=== PATIENT | female | born 1960 ===

== ENCOUNTER 2017-02-25 22:17 | Inpatient (IN) ==
[2017-02-25] MEDS ORDERED: FUROSEMIDE 40 MG/4 ML VIAL IV STA (22:53)
--- NOTE | 2017-02-25 23:11 | Emergency Department Note ---
IJessica Brittany, am scribing for, and in the presence of, Luz Marinelli DO 23: 04. IYves Debra, DO, personally performed the services described in this documentation, ascribed by Simran Lopez in my presence, and it is both accurate and complete 311 . Arrival - Arrival Chief Complaint: Shortness of Breath Stated Complaint: SOB ED Nursing Triage Note: Patient to triage with c/o SOB and chest tightness for the past couple of days which prompted her to go to the [facility] earlier this evening to be evaluated. Patient had labs, xray, and ekg at [facility] and was sent here for further evaluation and possible VC scan to R/O PE. Patient denies history of PE. Patient has history of CHF and xray report from [facility] reports "probable impending fluid overload" Patient arrives with records from [facility] in hand. EKG done in triage. Mode of Arrival: Ambulatory Limitations: No Limitations Source: Patient Time Seen by Provider: 02/25/17 22:40 - History of Present Illness HPI Narrative: This is a 57 y/o [place] female, who presents to the ED for further evaluation of dyspnea which started 2-3 days ago. She was seen at [facility] earlier this evening for the same complaint. She notes she has had lab work, x- rays, and an EKG while at [facility]. She was sent here for further evaluation and possible VC scan to rule out the possibility of PE. She denies chest pain. Pt has no other complaints/pain in the ED at this time. PT has a PMHx of CHF, HTN, Dyslipidemia, IDDM, renal problems, not yet on dialysis, asthma, back/neck problems, and enlarged uterus. Pt has had a colonoscopy. Pt denies a family hx. Onset (ago): day(s) (Started 2-3 days ago) Consistency: constant Severity: moderate Allergies/Adverse Reactions: Allergies Allergy/AdvReac Type Severity Reaction Status Date / Time No Known Allergies Allergy Verified 02/25/17 22:33 Home Medications: Home Medications Medication Instructions Recorded Confirmed Type Aspirin 325 mg PO DAILY 12/03/16 12/03/16 History Carvedilol 25 mg PO BID 12/03/16 12/03/16 History Chlorthalidone 25 mg PO DAILY 12/03/16 12/03/16 History Cholecalciferol (Vitamin D3) 50,000 units PO Q7DAY 12/03/16 12/03/16 History [Vitamin D3] Detemir 10 units SUBCUT AC BREAKFAST 12/03/16 12/03/16 History Detemir 60 units SUBCUT BEDTIME 12/03/16 12/03/16 History HYDROcodone/ACETAMIN 7.5-325 1 tablet PO Q6H #40 tablet 12/03/16 Rx [[place] 7.5-325] amLODIPine [Norvasc] 10 mg PO DAILY 12/03/16 12/03/16 History glyBURIDE [Diabeta] 10 mg PO BID W/MEALS 12/03/16 12/03/16 History Review of System - Review of System 12 point system: reviewed and no additional remarkable complaints except as stated - Review of System Cardiovascular: Present: dyspnea on exertion. Absent: chest pain Medical,Surgical,& Family Hx - Medical History Cardio: History of: CHF, Hypertension Neurology: No history of: Seizures HEENT: History of: Eye Problem (READING GLASSES) Endocrine: History of: Diabetes Mellitus (IDDM), Dyslipidemia Respiratory: History of: Asthma No history of: Respiratory Problems (FLU VAC- YES; PNEU VAC- YES.) Renal: History of: Renal Problems (PT STATES KIDNEY DISEASE, BUT NOT ON DIALYSIS ) Musculoskeletal: History of: Back/Neck Problems (BACK PAIN.) Reproductive: History of: Reproductive Problems (ENLARGED UTERUS.) - Surgical History Abdominal Surgeries: Surgical HX of: Colonoscopy - Social History Smoking Status: Unknown if ever smoked Frequency of Alcohol Use: None Type of Drug Use: None Exam Vital Signs: Vital Signs Temperature 98.2 F 02/25/17 22:23 Pulse Rate 70 02/25/17 23:28 Respiratory Rate 20 02/25/17 23:28 Blood Pressure 171/90 02/25/17 22:23 O2 Sat by Pulse Oximetry 95 02/25/17 22:23 - General General appearance: alert, in no apparent distress, obese (Morbid ) - Head Head exam: Present: atraumatic, normocephalic, normal inspection - Eye Eye exam: Present: normal appearance, PERRL, EOMI. Absent: nystagmus - Neck Neck exam: Present: full ROM - Chest Chest inspection: Present: symmetric chest wall rise - Respiratory Respiratory exam: Present: rales (Rales throught). Absent: normal lung sounds bilaterally, respiratory distress, rhonchi, wheezes - Cardiovascular Cardiovascular exam: Present: regular rate, normal rhythm, normal heart sounds. Absent: murmur, rubs, gallop, clicks, JVD - Rectal Exam Rectal exam: Present: deferred - Extremities Exam Extremities exam: Present: pedal edema (1+non pitting edema to the BLE) - Neurological Exam Neurological exam: Present: alert, oriented X3, CN II-XII intact. Absent: motor sensory deficit - Psychiatric Psychiatric exam: Present: normal affect, normal mood. Absent: depressed, agitated, anxious, flat affect - Skin Skin exam: Present: warm, dry, intact, normal color. Absent: rash, cyanosis, diaphoresis Course Course Narrative: Patient will be admitted to the hospitalist for possible VQ scan in the morning. Results - Labs Lab Results: I have reviewed the patients labs Labs: Laboratory Tests 02/25/17 02/25/17 22:50 22:50 Total Creatine Kinase 119 Troponin I < 0.015 B-Natriuretic Peptide 142 H Disposition Clinical Impression: Congestive heart failure, Elevated d-dimer Case discussed with: patient Disposition: Still a Patient Condition: Stable Time of Disposition: 01:04
[2017-02-25] MEDS ORDERED: FUROSEMIDE 40 MG/4 ML VIAL ONE (23:19)
[2017-02-25 23:53] LABS: Troponin I Only < 0.015 NG/ML (0.00-0.045)
[2017-02-26] MEDS ORDERED: INSULIN REGULAR 100 UNIT/ML SUBCUT ONE ×2 (01:55→03:00)
[2017-02-26] MEDS ORDERED: ONDANSETRON 4 MG/2 ML VIAL IV PRN (01:55)
[2017-02-26] MEDS ORDERED: ALBUTEROL/IPRATROPIUM 3 ML NEB RESP TX PRN (01:59)
--- NOTE | 2017-02-26 02:07 | Hospitalist History & Physical ---
Assessment and Plan (1) Chest pain Status: Acute Current Visit: Yes (2) Diabetes Status: Acute Current Visit: Yes Qualifiers: Diabetic retinopathy severity: with severe nonproliferative retinopathy (3) Elevated d-dimer Status: Acute Assessment and plan: Our plan for this patient 1. Admit patient to telemetry 2. Draw serial cardiac enzymes 3. Consult cardiology 4. Order VQ scan 5. Accu-Cheks before meals and at bedtime 6. Home meds as appropriate once confirmed 7. Fasting lipid profile 8. Reevaluate patient in the morning and adjust plans appropriate Current Visit: Yes History of Present Illness Chief complaint: Chest pain or shortness of breath History of present illness: Ms. Regalado is a 57 year old female with past medical history significant for morbid obesity, diabetes, hypertension, asthma and history of heart failure who presents to our hospital as a transfer from [facility]. Patient reports that she has been having chest discomfort and shortness of breath over the past 3 days. This started at work. 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 She thought it was her asthma she tried an inhaler within this tight sensation came back. It seem like it started in the lower part of her chest and radiated up it did not approach her shoulder or down her arm. At the same time she is feeling shortness of breath. She denies diaphoresis. She had a regular appointment for her diabetes today. When she brought up what was going on the clinic practitioner ordered a d-dimer which was elevated. She subsequently sent over to the [facility]. And then transferred to our hospital for this elevated d-dimer. Patient is not tachycardic and O2 saturations are 100% on 2 L. I was consulted to admit the patient through the emergency room. Home Medications Medication Instructions Recorded Confirmed Type Aspirin 325 mg PO DAILY 12/03/16 12/03/16 History Carvedilol 25 mg PO BID 12/03/16 12/03/16 History Chlorthalidone 25 mg PO DAILY 12/03/16 12/03/16 History Cholecalciferol (Vitamin D3) 50,000 units PO Q7DAY 12/03/16 12/03/16 History [Vitamin D3] Detemir 10 units SUBCUT AC BREAKFAST 12/03/16 12/03/16 History Detemir 60 units SUBCUT BEDTIME 12/03/16 12/03/16 History HYDROcodone/ACETAMIN 7.5-325 1 tablet PO Q6H #40 tablet 12/03/16 Rx [[place] 7.5-325] amLODIPine [Norvasc] 10 mg PO DAILY 12/03/16 12/03/16 History glyBURIDE [Diabeta] 10 mg PO BID W/MEALS 12/03/16 12/03/16 History Allergies Allergy/AdvReac Type Severity Reaction Status Date / Time No Known Allergies Allergy Verified 02/25/17 22:33 Medical,Surgical,& Family Hx - Medical History Cardio: History of: CHF, Hypertension Neurology: No history of: Seizures HEENT: History of: Eye Problem (READING GLASSES) Endocrine: History of: Diabetes Mellitus (IDDM), Dyslipidemia Respiratory: History of: Asthma No history of: Respiratory Problems (FLU VAC- YES; PNEU VAC- YES.) Renal: History of: Renal Problems (PT STATES KIDNEY DISEASE, BUT NOT ON DIALYSIS ) Musculoskeletal: History of: Back/Neck Problems (BACK PAIN.) Reproductive: History of: Reproductive Problems (ENLARGED UTERUS.) - Surgical History Abdominal Surgeries: Surgical HX of: Colonoscopy - Family History Family History: Reports;: Family Diabetes, Family Hypertension - Social History Smoking Status: Unknown if ever smoked Frequency of Alcohol Use: None Type of Drug Use: None 12 point system: reviewed and no additional remarkable complaints except as stated Exam - Constitutional Vitals: Period Temp Pulse Resp BP Sys/[place] Pulse Ox Last 24 Hr 98.2 F-98.2 F 70-72 20-22 170-171/90-90 95 - General General appearance: alert, in no apparent distress, obese - Head Head exam: Present: atraumatic, normocephalic, normal inspection - Eye Eye exam: Present: normal appearance, PERRL, EOMI. Absent: nystagmus - Neck Neck exam: Present: full ROM - Chest Chest inspection: Present: symmetric chest wall rise - Respiratory Respiratory exam: Present: Grossly clear but distant - Cardiovascular Cardiovascular exam: Present: regular rate, normal rhythm, normal heart sounds. - Rectal Exam Rectal exam: Present: deferred - Extremities Exam Extremities exam: Present: pedal edema (1+non pitting edema to the BLE) - Neurological Exam Neurological exam: Present: alert, oriented X3, CN II-XII intact. - Psychiatric Psychiatric exam: Present: normal affect, normal mood. Absent: depressed, agitated, anxious, flat affect - Skin Skin exam: Present: warm, dry, intact, normal color. Absent: rash, cyanosis, diaphoresis Results - Labs Labs: Labs from outside facility displayed glucose 264 BUN 38 creatinine 3.0 calcium 8.5 sodium 142 potassium 4 3.7 chloride 108 bicarb 23 total protein 9 albumin 3 total bili 0.2 alk phos 115 SGOT 15 SGPT 19 urinalysis negative nitrites negative leukocytes platelets 337 hemoglobin 11.4 hematocrit 36.3
[2017-02-26] MEDS: NITROGLYCERIN 2% OINT 1 INCH/GM PACK TOP SCH ×3 (05:29→18:14)
[2017-02-26 06:39] LABS: Calcium 8.4 MG/DL (8.5-10.1); Magnesium 1.8 MG/DL (1.8-2.4); Potassium 3.8 MMOL/L (3.5-5.1)
[2017-02-26 06:51] LABS: Risk Ratio 3.55
--- NOTE | 2017-02-26 08:15 | XRay Report ---
XR chest post lung scan Indication: Shortness of breath Comparison: 02 December 2016 Findings: The heart and mediastinum are normal in size and configuration. The pulmonary vascularity is normal in caliber. No lung infiltrates, effusions, pneumothorax or other abnormality is demonstrated. Impression: No acute cardiopulmonary disease. PROCEDURE INTERPRETED AT [facility] DEPARTMENT OF RADIOLOGY Final Report Signed by: Dr. Ulysses Mast
--- NOTE | 2017-02-26 08:16 | Nuclear Medicine Report ---
Nuclear medicine ventilation/perfusion scan Indication: Shortness of breath Findings: Ventilation scan: The patient received 40.0 mCi of 90 9M technetium DTPA aerosolized. There is normal distribution of radiotracer in both lungs. Perfusion scan: Patient received 5.0 mCi of 90 9M technetium MAA intravenously. There is normal in distribution of radiotracer in both lungs without evidence of segmental or greater defects. Impression: Normal nuclear medicine ventilation perfusion scan. This indicates low probability for pulmonary embolism. PROCEDURE INTERPRETED AT [facility] DEPARTMENT OF RADIOLOGY Final Report Signed by: Dr. Ulysses Mast
--- NOTE | 2017-02-26 08:34 | EKG Report ---
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
--- NOTE | 2017-02-26 08:36 | EKG Report ---
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
[2017-02-26] MEDS: INSULIN REGULAR 100 UNIT/ML SUBCUT SCH ×4 (08:46→21:51)
[2017-02-26] MEDS ORDERED: ASPIRIN EC 325 MG TABLET PO SCH (09:00)
[2017-02-26 09:40] LABS: Troponin I Only < 0.015 NG/ML (0.00-0.045)
--- NOTE | 2017-02-26 10:43 | Cardiology Consult Note ---
Assessment and Plan - Time spent with patient Time spent with patient: Greater than 30 minutes (1) Chest pain Status: Acute Assessment and plan: SEE PLAN OF CARE LISTED BELOW. Current Visit: Yes (2) Congestive heart failure Status: Chronic Assessment and plan: SEE PLAN OF CARE LISTED BELOW. Current Visit: Yes Qualifiers: Congestive heart failure type: unspecified congestive heart failure type Congestive heart failure chronicity: unspecified congestive heart failure chronicity Qualified Code(s): I50.9 - Heart failure, unspecified (3) Diabetes Status: Chronic Assessment and plan: SEE PLAN OF CARE LISTED BELOW. Current Visit: Yes Qualifiers: Diabetic retinopathy severity: with severe nonproliferative retinopathy (4) Elevated d-dimer Status: Acute Assessment and plan: SEE PLAN OF CARE LISTED BELOW. Current Visit: Yes (5) Shortness of breath Status: Acute Assessment and plan: SEE PLAN OF CARE LISTED BELOW. Current Visit: Yes (6) Chronic kidney disease Status: Chronic Assessment and plan: SEE PLAN OF CARE LISTED BELOW. Current Visit: Yes Qualifiers: Chronic kidney disease stage: stage 4 (severe) Qualified Code(s): N18.4 - Chronic kidney disease, stage 4 (severe) (7) Asthma Status: Chronic Assessment and plan: SEE PLAN OF CARE LISTED BELOW. Current Visit: Yes (8) Hypertension Status: Chronic Assessment and plan: SEE PLAN OF CARE LISTED BELOW. Current Visit: Yes (9) Dyslipidemia Status: Chronic Assessment and plan: SEE PLAN OF CARE LISTED BELOW. Current Visit: Yes History of Present Illness - Data of Consult Patient: new to practice Consult date: 02/26/17 Requesting Physician: Klaus Levy - Consult Narrative Reason for consult: Chest pain History of present illness: MAGNETO SPECIALIST: Dr. Wei Ms. Regalado is a 57 year old female without known history of coronary artery disease, not routinely followed by cardiology. Cardiac risk factors include: Hypertension, obesity, sedentary lifestyle, diabetes and former smoker (quit 9 years ago). Denies significant family history of CAD. She does report having a negative stress test performed in 2006. However, I cannot locate this record. Also reports having a clean heart catheterization in the distant past. No report noted in the EMR. Patient reports to [facility] with complaints of shortness of breath and chest pain 3 days. This onset while at work Thursday morning. She reports that she was sitting at her desk and suddenly developed dyspnea and chest tightness. She does have history of asthma. She used her inhaler which gave her relief. However, her symptoms did return later that day. She then experienced dyspnea and chest tightness constantly, waxing and waning in intensity. This worsened with exertion and talking. When she sat down and calmed herself her symptomology improved. Just simply having a conversation with family members would cause return of her symptoms. Chest tightness worse when taking a deep breath. Denies radiation and diaphoresis. Associated with mild nausea. Patient's is mildly continue to progress and she felt that she needed to be further evaluated in the emergency department. She was admitted under hospital medicine's service and housed the telemetry unit. Cardiology has been consulted to further evaluate. Patient was seen and examined on the telemetry unit. She is currently without complaints of dyspnea, heaviness or tightness. She continues to be short of breath. Active wheezing noted upon auscultation. Elevated d-dimer at outlying facility. VQ lung scan performed which was low probability of PE. I have added venous ultrasound to bilateral lower extremities to rule out DVT. Chest x -ray reviewed. No overt heart failure. Echocardiogram has been ordered. Chest pain is atypical in nature. Worse upon deep breath. EKG benign. Cardiac biomarkers negative. Unable to perform nuclear stress test today as patient previously underwent VQ lung scan this morning. She is also actively wheezing and her chest pain is felt to be most likely secondary to her underlying asthma. We will perform further cardiac workup once her lung disease has improved. This can be safely done as an outpatient. She will follow with Dr. Wei in 1 week for outpatient stress test. Continue aspirin. At home, patient takes carvedilol. I have changed this to Bystolic as she does have underlying lung disease and actively wheezing. Lipid-lowering agent initiated for further risk stratification. Unable to tolerate beta- blockade as her heart rate will not tolerate. IMPRESSION AND PLAN 1. CHEST PAIN - EKG benign. Cardiac biomarkers negative. Unable to perform nuclear stress test today as patient previously underwent VQ lung scan this morning. She is also actively wheezing and her chest pain is felt to be most likely secondary to her underlying asthma. We will perform further cardiac workup once her lung disease has improved. This can be safely done as an outpatient. She will follow with Dr. Wei in 1 week for outpatient stress test. Continue aspirin. Lipid-lowering agent initiated for further risk stratification. Unable to tolerate beta-blockade as her heart rate will not tolerate. 2. SHORTNESS OF BREATH - VQ lung scan was low probability for PE. Unable to perform CT angiogram due to elevated creatinine, 3.0. Suspect asthma exacerbation. Continue breathing treatments and supplemental oxygen. Echocardiogram has been ordered. These results will be reviewed and further recommendations will be made. 3. CHRONIC KIDNEY DISEASE - Avoiding nephrotoxic agents. We will not initiate BEENA or ARB for fear of worsening renal function. Daily BMP. 4. ELEVATED D-DIMER - VQ lung scan low probability of pulmonary embolism. Venous Dopplers of lower extremities ordered. 5. ASTHMA - Suspect exacerbation, active wheezing. Continue breathing treatments and supplemental oxygen. 6. DIABETES - Sliding scale insulin. Accu-Cheks before meals and at bedtime. 7. HYPERTENSION - Under well control this hospitalization. Avoiding BEENA inhibitor and ARB due to fear of worsening renal function. Will monitor blood pressure and make adjustments as needed this hospitalization. 8. HISTORY OF CONGESTIVE HEART FAILURE - Echocardiogram pending. No overt heart failure on chest x-ray. Received IV Lasix in the emergency department. Avoiding BEENA inhibitor and ARB due to fear of worsening renal function. Can consider hydralazine/Imdur if blood pressure will tolerate. At home, patient takes carvedilol. I have changed this to Bystolic as she does have underlying lung disease and actively wheezing. 9. DYSLIPIDEMIA - Lipid panel reviewed. Lipid lowering agent initiated. Lipid panel will need to be repeated in 4-6 weeks. CC: Vanessa Lemus MD - Home Medications and Allergies Home Medications: Home Medications Medication Instructions Recorded Confirmed Type Carvedilol 25 mg PO BID 12/03/16 02/26/17 History Chlorthalidone 25 mg PO DAILY 12/03/16 02/26/17 History Cholecalciferol (Vitamin D3) 50,000 units PO Q7DAY 12/03/16 02/26/17 History [Vitamin D3] Insulin Detemir [Levemir FlexPen] 10 units SUBCUT AC BREAKFAST 12/03/16 History Insulin Detemir [Levemir FlexPen] 60 units SUBCUT BEDTIME 12/03/16 02/26/17 History amLODIPine [Norvasc] 20 mg PO DAILY 12/03/16 02/26/17 History glyBURIDE [Diabeta] 10 mg PO BID W/MEALS 12/03/16 02/26/17 History Albuterol Inhaler [Proventil 2 puffs INH Q4HR PRN 02/26/17 02/26/17 History Inhaler] Aspirin EC Tab 81 mg PO DAILY 02/26/17 02/26/17 History Atorvastatin [Lipitor] 40 mg PO BEDTIME 02/26/17 02/26/17 History Lisinopril [Lisinopril] 40 mg PO DAILY 02/26/17 02/26/17 History Ranitidine Tab [Zantac Tab] 150 mg PO BID 02/26/17 02/26/17 History Allergies/Adverse Reactions: Allergies Allergy/AdvReac Type Severity Reaction Status Date / Time No Known Allergies Allergy Verified 02/25/17 22:33 - Constitutional Constitutional: Present: as per HPI, fatigue, weakness. Absent: chills, fever(s ), frequent falls, lethargy, malaise, weight gain, weight loss - Cardiovascular Cardiovascular: Present: as per HPI, chest pain at rest, chest pain with activity, dyspnea, dyspnea on exertion, edema, orthopnea. Absent: claudication , diaphoresis, radiating jaw, neck or arm pain, lightheadedness, palpitations, PND - Respiratory Respiratory: Present: as per HPI, dyspnea, dyspnea on exertion, wheezing, pain on inspiration. Absent: cough, hemoptysis, snoring, change in phlegm color - Gastrointestinal Gastrointestinal: Present: as per HPI. Absent: abdominal pain, change in bowel habits, coffee ground emesis, diarrhea, heartburn, hematemesis, hematochezia, loose stools, melena, nausea, vomiting - Neurological Neurological: Present: as per HPI. Absent: abnormal gait, abnormal speech, behavioral changes, dizziness, frequent falls, syncope - Psychiatric Psychiatric: Present: as per HPI. Absent: anxiety, confusion, panic attacks Medical,Surgical,& Family Hx - Medical History Cardio: History of: CHF, Hypertension Neurology: No history of: Seizures HEENT: History of: Eye Problem (READING GLASSES) Endocrine: History of: Diabetes Mellitus (IDDM), Dyslipidemia Respiratory: History of: Asthma No history of: Respiratory Problems (FLU VAC- YES; PNEU VAC- YES.) Renal: History of: Renal Problems (PT STATES KIDNEY DISEASE, BUT NOT ON DIALYSIS ) Musculoskeletal: History of: Back/Neck Problems (BACK PAIN.) Reproductive: History of: Reproductive Problems (ENLARGED UTERUS.) - Surgical History Abdominal Surgeries: Surgical HX of: Colonoscopy - Family History Family History: Reports;: Family Diabetes, Family Hypertension - Social History Smoking Status: Former smoker Frequency of Alcohol Use: None Type of Drug Use: None Marital Status: Single Lives With:: Alone Functional capacity: independent ambulation Physical Examination Vital Signs Temp Pulse Resp BP Pulse Ox 98.2 F 72 22 170/90 95 02/25/17 22:23 02/25/17 22:23 02/25/17 22:23 02/25/17 22:23 02/25/17 22:23 Exam: General: Appears well with no apparent distress. Pleasant and cooperative. Appears comfortable. HEENT: PERRL, normocephalic, atraumatic. Mucous membranes moist. No jaundice noted. Conjunctiva moist and clear, sclerae anicteric Neck: Unable to assess for JVD due to habitus. no thyromegaly or lymphadenopathy noted. No carotid bruit appreciated Cardiac: Regular rate and rhythm. No murmur rub or gallop. Lungs: Wheezing auscultated throughout. Oxygen via nasal cannula Abdomen: Obese. Soft, bowel sounds normoactive. Nontender and nondistended. No abdominal bruit or thrill noted. No masses noted. Extremities: No clubbing, cyanosis noted. 1+ bilateral lower extremity edema. Upper extremity pulses 2+. Lower extremity pulses 2+. Capillary refill less than 3 seconds. Skin: No unusual lesions or rashes. No skin breakdown appreciated. Neuro: Awake, alert and oriented 3. Moves all extremities well without hemiparesis or paralysis. No essential tremor is appreciated. Result/EKG - Labs CBC & BMP: 02/26/17 04:23 Lab Results: I have reviewed the past 24 hour labs Labs: Laboratory Results - last 24 hr 02/25/17 02/25/17 02/26/17 22:50 22:50 04:23 Sodium Potassium Chloride Carbon Dioxide Anion Gap BUN Creatinine GFR Calculation BUN/Creatinine Ratio Glucose POC Glucose Calculated Osmolality Calcium Magnesium Total Creatine Kinase 119 CK-MB (CK-2) Troponin I < 0.015 B-Natriuretic Peptide 142 H Triglycerides 160 H Cholesterol 149 LDL Cholesterol 87.0 VLDL Cholesterol 32.0 HDL Cholesterol 42 Heart Disease Risk Ratio 3.55 09/14/17 09/14/17 09/14/17 04:23 04:23 08:39 Sodium 143 Potassium 3.8 Chloride 110 H Carbon Dioxide 24 Anion Gap 12.8 BUN 38 H Creatinine 3.00 H GFR Calculation 22 BUN/Creatinine Ratio 12.00 Glucose 167 H POC Glucose Calculated Osmolality 297.0 Calcium 8.4 L Magnesium 1.8 Total Creatine Kinase 96 CK-MB (CK-2) 1.2 Troponin I < 0.015 < 0.015 B-Natriuretic Peptide Triglycerides Cholesterol LDL Cholesterol VLDL Cholesterol HDL Cholesterol Heart Disease Risk Ratio 02/26/17 08:42 Sodium Potassium Chloride Carbon Dioxide Anion Gap BUN Creatinine GFR Calculation BUN/Creatinine Ratio Glucose POC Glucose 134 H Calculated Osmolality Calcium Magnesium Total Creatine Kinase CK-MB (CK-2) Troponin I B-Natriuretic Peptide Triglycerides Cholesterol LDL Cholesterol VLDL Cholesterol HDL Cholesterol Heart Disease Risk Ratio - EKG EKG results: interpreted by me, sinus rhythm (Moderate intraventricular conduction delay.)
[2017-02-26] MEDS: ENOXAPARIN 30 MG/0.3 ML SYRINGE SUBCUT SCH (11:18)
[2017-02-26 12:38] LABS: Basophils % 0.3 % (0.0-0.8); Eosinophils # 0.4 10*3/uL (0.0-0.87); Eosinophils % 4.1 % (0.00-10.9); Hematocrit 32.2 VOL% (35.7-47.0); Hemoglobin 10.7 GM/DL (12.0-16.0); Immature Granulocytes % 0.3 %; Immature Granulocytes Absolute 0.03 #; Lymphocytes # 2.4 10*3/uL (1.4-4.0); Lymphocytes % 25.4 % (21.3-54.2); Mean Corpuscular HGB Conc 33.2 GM/DL (32-36); Mean Corpuscular Hemoglobin 29 PG (27-34); Mean Corpuscular Volume 85.6 FL (87-102); Mean Platelet Volume 9.3 FL (9.6-12.0); Monocytes # 0.7 10*3/uL (0.11-0.8); Monocytes % 7.2 % (1.7-12.7); Neutrophils % 62.7 % (38.7-73.9); Platelet Count 311 T/CUMM (130-400); Red Blood Count 3.76 MC/CUMM (3.8-5.5); Red Cell Distribution Width 13.2 % (9.3-17.3); White Blood Count 9.5 T/CUMM (4-12)
[2017-02-26] MEDS ORDERED: ALBUTEROL 2.5 MG/3 ML NEB RESP TX PRN (13:00)
[2017-02-26 13:15] LABS: Troponin I Only < 0.015 NG/ML (0.00-0.045)
[2017-02-26] MEDS: ALBUTEROL/IPRATROPIUM 3 ML NEB RESP TX SCH ×2 (13:49→20:21)
--- NOTE | 2017-02-26 14:49 | Ultrasound Report ---
History: Lower extremity edema Date: 02/26/2017 Study: Bilateral lower extremity color-flow venous Doppler study Comparison exam: No previous similar Color Doppler, wave form analysis, and compression analysis of the deep veins of both lower extremities from the common femoral vein level through the popliteal vein level shows that the veins are readily compressible. There is no abnormal intraluminal material to suggest thrombus. Waveform analysis is unremarkable. Ultrasound images were captured and archived Impression: No evidence of acute DVT PROCEDURE INTERPRETED AT [facility] Final Report Signed by: Dr. Kianna Vieyra
[2017-02-26 16:07] LABS: Troponin I Only < 0.015 NG/ML (0.00-0.045)
--- NOTE | 2017-02-26 16:08 | ECHO Report ---
Caitlin Regalado Exam Date: 02/26/2017 13:34 Referring Physician: Technologist: Marii Cardozo RDCS Age: 57 Ht (in): 63 Wt (lb): 312 Gender: F Exam Location: [facility] Indications: Chest pain, unspecified, Essential (primary) hypertension, Chronic kidney disease, unspecified, Heart failure, unspecified, Elevated D-Dimer, Shortness of breath, Asthma, Diabetes BP: 137 / 72 HR: 70 Rhythm: Sinus Technical Quality: IMPRESSIONS Normal left ventricular cavity size. Mild concentric left ventricular hypertrophy. Left ventricular ejection fraction is estimated at 60 %. Grade 2 diastolic dysfunction. Moderate biatrial enlargement. Mildly thickened mitral valve, with mild annular calcification, mild to moderate mitral valve regurgitation. Mild aortic valve sclerosis without stenosis, with trace insufficiency. Moderate tricuspid valve regurgitation, with moderate pulmonary hypertension. MEASUREMENTS (Male / Female) Normal Values 2D ECHO LV Diastolic Diameter PLAX 4.4 cm 4.2 - 5.9 / 3.9 - 5.3 cm LV Systolic Diameter PLAX 3.1 cm LV Fractional Shortening PLAX 29.5 % IVS Diastolic Thickness 1.4 cm 0.6 - 1.0 / 0.6 - 0.9 cm LVPW Diastolic Thickness 1.4 cm 0.6 - 1.0 / 0.6 - 0.9 cm RV Internal Dim ED PLAX 3.4 cm Aortic Root Diameter 3.4 cm LA Systolic Diameter LX 4.2 cm 3.0 - 4.0 / 2.7 - 3.8 cm DOPPLER TR Peak Velocity 318.0 cm/s TR Peak Gradient 40.4 mmHg FINDINGS Left Ventricle Normal left ventricular cavity size. Mild concentric left ventricular hypertrophy. Left ventricular ejection fraction is estimated at 60 %. Grade 2 diastolic dysfunction. Right Ventricle The right ventricle is normal in size and function. Right Atrium Moderately increased right atrial size. Left Atrium Moderately increased left atrial size. Mitral Valve Mildly thickened mitral valve. Mild mitral annular calcification. Mild- moderate mitral valve regurgitation. Aortic Valve Mild aortic valve sclerosis without stenosis, with trace insufficiency. Tricuspid Valve Morphologically normal tricuspid valve. Moderate tricuspid valve regurgitation. Tricuspid regurgitation velocities suggest a PAP of 50 mmHg. Pulmonic Valve Morphologically normal pulmonic valve. Trace pulmonary valve regurgitation. Pericardium Normal pericardium without effusion. Aorta Normal ascending aorta dimension. Frederick Marrero (Electronically Signed) Final Date: 26 February 2017 16:07
[2017-02-26] MEDS: predniSONE 20 MG TABLET PO SCH ×2 (16:39→21:49)
[2017-02-26] MEDS: FUROSEMIDE 40 MG/4 ML VIAL IV SCH (16:40)
[2017-02-26] MEDS ORDERED: CARVEDILOL 25 MG TABLET PO SCH (21:00)
[2017-02-26] MEDS: ROSUVASTATIN 20 MG TABLET PO SCH (21:51)
[2017-02-27] MEDS: NITROGLYCERIN 2% OINT 1 INCH/GM PACK TOP SCH ×4 (00:08→18:14)
[2017-02-27] MEDS: ALBUTEROL/IPRATROPIUM 3 ML NEB RESP TX SCH ×7 (00:15→23:50)
[2017-02-27 04:19] LABS: Basophils % 0.1 % (0.0-0.8); Hematocrit 31.6 VOL% (35.7-47.0); Hemoglobin 10.3 GM/DL (12.0-16.0); Immature Granulocytes % 0.8 %; Immature Granulocytes Absolute 0.07 #; Lymphocytes # 0.8 10*3/uL (1.4-4.0); Lymphocytes % 9.1 % (21.3-54.2); Mean Corpuscular HGB Conc 32.6 GM/DL (32-36); Mean Corpuscular Hemoglobin 28 PG (27-34); Mean Corpuscular Volume 85.9 FL (87-102); Mean Platelet Volume 9.5 FL (9.6-12.0); Monocytes # 0.1 10*3/uL (0.11-0.8); Monocytes % 0.8 % (1.7-12.7); Neutrophils # 8.2 10*3/uL (1.4-7.4); Neutrophils % 89.2 % (38.7-73.9); Platelet Count 314 T/CUMM (130-400); Red Blood Count 3.68 MC/CUMM (3.8-5.5); Red Cell Distribution Width 13.1 % (9.3-17.3); White Blood Count 9.2 T/CUMM (4-12)
[2017-02-27 04:51] LABS: Calcium 8.2 MG/DL (8.5-10.1); Magnesium 1.6 MG/DL (1.8-2.4); Osmolality,Calculated 301.4 MOS/KG (273-304); Potassium 4.3 MMOL/L (3.5-5.1)
[2017-02-27] MEDS ORDERED: ASPIRIN EC 81 MG TABLET PO SCH (09:00)
--- NOTE | 2017-02-27 09:17 | EKG Report ---
Stationary ECG Study [facility] Test Date: 02/27/2017 7:48:11 AM Pat Name: MINAL MENCHACA Department: Room: 266 Gender: F Credit Balance Specialist: JEANMARIE : 1960 Requested by: Jaclyn Hamilton Order Number: [id number] Reading MD: JIA PARHAM Intervals [place] Rate: 65 P: 63 HI: 198 QRS: -22 QRSD: 123 T: 90 QT: 449 QTc: 461 Interpretive Statements SINUS RHYTHM BORDERLINE LEFT AXIS DEVIATION MODERATE INTRAVENTRICULAR CONDUCTION DELAY Electronically Signed On 02-27-17 17:07:42 CDT by JIA PARHAM [email or web address]
[2017-02-27] MEDS: ASPIRIN EC 81 MG TABLET PO SCH (09:18)
[2017-02-27] MEDS: predniSONE 20 MG TABLET PO SCH ×2 (09:18→21:40)
[2017-02-27] MEDS: NEBIVOLOL 5 MG TABLET PO SCH (09:19)
[2017-02-27] MEDS: INSULIN REGULAR 100 UNIT/ML SUBCUT SCH ×4 (09:19→21:40)
[2017-02-27] MEDS: ENOXAPARIN 30 MG/0.3 ML SYRINGE SUBCUT SCH (09:19)
[2017-02-27] MEDS: FUROSEMIDE 40 MG/4 ML VIAL IV SCH ×2 (09:19→16:21)
[2017-02-27] MEDS ORDERED: MAGNESIUM SULF RIDER 2 GM in PREMIX 1 EACH IV PRN (11:55)
[2017-02-27] MEDS ORDERED: MAGNESIUM SULF RIDER 4 GM in PREMIX 1 EACH IV PRN (11:55)
--- NOTE | 2017-02-27 11:56 | Cardiology Progress Note ---
Assessment and Plan (1) Chest pain Status: Acute Assessment and plan: SEE PLAN OF CARE LISTED BELOW. Current Visit: Yes (2) Congestive heart failure Status: Chronic Assessment and plan: SEE PLAN OF CARE LISTED BELOW. Current Visit: Yes Qualifiers: Congestive heart failure type: unspecified congestive heart failure type Congestive heart failure chronicity: unspecified congestive heart failure chronicity Qualified Code(s): I50.9 - Heart failure, unspecified (3) Diabetes Status: Chronic Assessment and plan: SEE PLAN OF CARE LISTED BELOW. Current Visit: Yes Qualifiers: Diabetic retinopathy severity: with severe nonproliferative retinopathy (4) Elevated d-dimer Status: Acute Assessment and plan: SEE PLAN OF CARE LISTED BELOW. Current Visit: Yes (5) Shortness of breath Status: Acute Assessment and plan: SEE PLAN OF CARE LISTED BELOW. Current Visit: Yes (6) Chronic kidney disease Status: Chronic Assessment and plan: SEE PLAN OF CARE LISTED BELOW. Current Visit: Yes Qualifiers: Chronic kidney disease stage: stage 4 (severe) Qualified Code(s): N18.4 - Chronic kidney disease, stage 4 (severe) (7) Asthma Status: Chronic Assessment and plan: SEE PLAN OF CARE LISTED BELOW. Current Visit: Yes (8) Hypertension Status: Chronic Assessment and plan: SEE PLAN OF CARE LISTED BELOW. Current Visit: Yes (9) Dyslipidemia Status: Chronic Assessment and plan: SEE PLAN OF CARE LISTED BELOW. Current Visit: Yes (10) Hypomagnesemia Status: Acute Assessment and plan: SEE PLAN OF CARE LISTED BELOW. Current Visit: Yes Cardiology - PN: Subj Interval history: COIL WRAPPER: Dr. Wei SUMMARY Ms. Regalado is a 57 year old female without known history of coronary artery disease, not routinely followed by cardiology. She has an appointment to see Dr. Wei for her first cardiology evaluation. Cardiac risk factors include : Hypertension, obesity, sedentary lifestyle, diabetes and former smoker (quit 9 years ago). Denies significant family history of CAD. She does report having a negative stress test performed in 2006. However, I cannot locate this record. Also reports having a clean heart catheterization in the distant past. No report noted in the EMR. She was admitted with shortness of breath, echo suggests diastolic CHF exacerbation, moderate pulmonary hypertension, moderate MR. No ACS. No DVT or PE on ultrasound and VQ scan. Severe CKD. 2016 Patient seen and examined on the telemetry unit. She has done well overnight without complaints. Reports that her breathing has improved. Without chest pain, heaviness or tightness today. She ruled out for NM. No ACS. Her complaints of chest pain seemed to have an asthma component. We will plan to further risk stratify patient with outpatient cardiac stress test in 1 week when her asthma is compensated. Avoid nonselective beta-blockers. Continue aspirin, Bystolic and statin. Avoiding BEENA inhibitor and ARB due to fear of worsening renal function. Hemodynamically stable. Eyes and eyes have been reviewed. She has diuresed well with IV Lasix. This will be transitioned to p.o. as she was without orthopnea last night. Labs reviewed. Creatinine unchanged at 3.0. Daily BMP. Hypomagnesemia noted. Replace per protocol order. No further recommendations. I will further discuss with Dr. Marrero and await his additional recommendations. IMPRESSION AND PLAN 1. CHEST PAIN - Ruled out for NM. No ACS. Seems to have an asthma component. Avoid nonselective beta-blockers. Continue aspirin, Bystolic and statin. We will plan to further risk stratify patient with outpatient cardiac stress test in 1 week when her asthma is compensated. Patient is agreeable to this plan. She will follow with Dr. Wei in 1 week for outpatient stress test. 2. SHORTNESS OF BREATH - Improved.. Suspect this is multifactorial to include both asthma exacerbation and acute exacerbation of diastolic congestive heart failure. Patient diuresed well with IV Lasix. I will transition her to p.o. today. No orthopnea overnight. 3. CHRONIC KIDNEY DISEASE - Avoiding nephrotoxic agents. We will not initiate BEENA or ARB for fear of worsening renal function. Patient's Lovenox is renally dosed as she has chronic kidney disease, stage IV. Creatinine this hospitalization 3.0. This will be continued for DVT prophylaxis. Daily BMP. 4. ELEVATED D-DIMER - No DVT or PE on ultrasound and VQ scan. 5. ASTHMA - Improved. No wheezing on exam. Continue breathing treatments, steroids and supplemental oxygen. 6. DIABETES - Sliding scale insulin. Accu-Cheks before meals and at bedtime. 7. HYPERTENSION - Under well control this hospitalization. Continue current plan of care. 8. ACUTE DIASTOLIC CHF EXACERBATION - Patient diuresed well with IV Lasix. No orthopnea overnight. I will transition patient to p.o. Lasix today. Avoiding BEENA inhibitor and ARB due to fear of worsening renal function. Continue beta-shawna. 9. DYSLIPIDEMIA - LDL 87. Continue lipid-lowering agent. Lipid panel will need to be repeated in 4-6 weeks. 10. HYPOMAGNESEMIA - Replace per protocol. Exam (Progress Note) - Constitutional Vitals: Period Temp Pulse Resp BP Sys/Arroyo Pulse Ox Last 24 Hr 96.0 F-98.0 F 65-82 14-22 127-161/68-83 92-100 Exam: General: Appears well with no apparent distress. Pleasant and cooperative. Appears comfortable. HEENT: PERRL, normocephalic, atraumatic. Mucous membranes moist. No jaundice noted. Conjunctiva moist and clear, sclerae anicteric Neck: Unable to assess for JVD due to habitus. no thyromegaly or lymphadenopathy noted. No carotid bruit appreciated Cardiac: Regular rate and rhythm. No murmur rub or gallop. Lungs: Clear to auscultation. Oxygen via nasal cannula Abdomen: Obese. Soft, bowel sounds normoactive. Nontender and nondistended. No abdominal bruit or thrill noted. No masses noted. Extremities: No clubbing, cyanosis noted. Trace lower extremity edema. Upper extremity pulses 2+. Lower extremity pulses 2+. Capillary refill less than 3 seconds. Skin: No unusual lesions or rashes. No skin breakdown appreciated. Neuro: Awake, alert and oriented 3. Moves all extremities well without hemiparesis or paralysis. No essential tremor is appreciated. Result/EKG - Labs CBC & BMP: 02/27/17 04:07 02/27/17 04:07 Lab Results: I have reviewed the past 24 hour labs Labs: Laboratory Results - last 24 hr 02/26/17 02/26/17 02/26/17 11:47 12:29 12:29 WBC 9.5 RBC 3.76 L Hgb 10.7 L Hct 32.2 L MCV 85.6 L MCH 29 MCHC 33.2 RDW 13.2 Plt Count 311 MPV 9.3 L Neut % (Auto) 62.7 Lymph % (Auto) 25.4 Dare % (Auto) 7.2 Eos % (Auto) 4.1 Baso % (Auto) 0.3 Neut # (Auto) 6.0 Lymph # (Auto) 2.4 Dare # (Auto) 0.7 Eos # (Auto) 0.4 Baso # (Auto) 0.0 Immature Gran % 0.3 Nucleated RBC % 0.0 Immature Gran # 0.03 Nucleated RBCs # 0.00 Immature Plt Fraction 0.0 Sodium Potassium Chloride Carbon Dioxide Anion Gap BUN Creatinine GFR Calculation BUN/Creatinine Ratio Glucose POC Glucose 126 H Calculated Osmolality Calcium Magnesium Total Creatine Kinase 95 CK-MB (CK-2) 1.2 Troponin I < 0.015 02/26/17 02/26/17 02/26/17 14:58 15:30 19:15 WBC RBC Hgb Hct MCV MCH MCHC RDW Plt Count MPV Neut % (Auto) Lymph % (Auto) [place] % (Auto) Eos % (Auto) Baso % (Auto) Neut # (Auto) Lymph # (Auto) [place] # (Auto) Eos # (Auto) Baso # (Auto) Immature Gran % Nucleated RBC % Immature Gran # Nucleated RBCs # Immature Plt Fraction Sodium Potassium Chloride Carbon Dioxide Anion Gap BUN Creatinine GFR Calculation BUN/Creatinine Ratio Glucose POC Glucose 179 H 285 H Calculated Osmolality Calcium Magnesium Total Creatine Kinase 107 CK-MB (CK-2) 1.4 Troponin I < 0.015 02/27/17 02/27/17 02/27/17 04:07 04:07 07:58 WBC 9.2 RBC 3.68 L Hgb 10.3 L Hct 31.6 L MCV 85.9 L MCH 28 MCHC 32.6 RDW 13.1 Plt Count 314 MPV 9.5 L Neut % (Auto) 89.2 H Lymph % (Auto) 9.1 L [place] % (Auto) 0.8 L Eos % (Auto) 0.0 Baso % (Auto) 0.1 Neut # (Auto) 8.2 H Lymph # (Auto) 0.8 L [place] # (Auto) 0.1 L Eos # (Auto) 0.0 Baso # (Auto) 0.0 Immature Gran % 0.8 Nucleated RBC % 0.0 Immature Gran # 0.07 Nucleated RBCs # 0.00 Immature Plt Fraction 0.0 Sodium 140 Potassium 4.3 Chloride 108 H Carbon Dioxide 24 Anion Gap 12.3 BUN 37 H Creatinine 3.00 H GFR Calculation 22 BUN/Creatinine Ratio 12.00 Glucose 342 H POC Glucose 377 H Calculated Osmolality 301.4 Calcium 8.2 L Magnesium 1.6 L Total Creatine Kinase CK-MB (CK-2) Troponin I Specialty Discharge - Follow Up or Referrals Follow up with: Yue Wei MD [Physician] - 03/24/17 9:40 am (Patient will need appointment with [facility] within 1 week of discharge for outpatient cardiac stress test. She will then follow with Dr. Yue Wei 1 week following stress test. Stress test is on 03/05/17 at 7:45 at [facility] NPO after MN before test and NO CAFFIENE for 24 HOURS before test. )
--- NOTE | 2017-02-27 14:41 | Event Note ---
Interviewed and examined the patient personally. Discussed findings with the nurse practitioner. I agree with the assessment and plan, with additions as below. See UTILIZATION ENGINEER note separately. 57-year-old female, who was trying to see Dr. Wei for a first cardiology evaluation. She was admitted with shortness of breath, echo suggests diastolic CHF exacerbation, moderate pulmonary hypertension, moderate MR. No ACS -Continue aspirin, statin. -Cont Bystolic, aim for resting heart rate around 60 bpm, systolic blood pressure less than 130 -Lasix 80 mg IV twice daily. She is still quite orthopneic. -No DVT or PE on ultrasound and VQ scan -Severe CKD. -Seems to have an asthma component. Still with bronchospasm. Avoid nonselective beta-blockers -No ACS. -Will need follow-up with Dr. Wei.
--- NOTE | 2017-02-27 15:19 | Hospitalist Progress Note ---
Assessment and Plan (1) Congestive heart failure Status: Chronic Assessment and plan: Diastolic heart failure Cardiology assisting Lasix 80 IV BID Current Visit: Yes Qualifiers: Congestive heart failure type: unspecified congestive heart failure type Congestive heart failure chronicity: unspecified congestive heart failure chronicity Qualified Code(s): I50.9 - Heart failure, unspecified (2) Diabetes Status: Chronic Assessment and plan: SSI FSG elevated Start lantus 15 units daily Current Visit: Yes Qualifiers: Diabetic retinopathy severity: with severe nonproliferative retinopathy (3) Shortness of breath Status: Acute Current Visit: Yes (4) Chronic kidney disease Status: Chronic Assessment and plan: Patient was suppose to follow with Dr. Whittaker but missed her appointment Stable Current Visit: Yes Qualifiers: Chronic kidney disease stage: stage 4 (severe) Qualified Code(s): N18.4 - Chronic kidney disease, stage 4 (severe) (5) Asthma Status: Chronic Assessment and plan: Duonebs, prednisone Current Visit: Yes (6) Hypertension Status: Chronic Current Visit: Yes (7) WENDY (obstructive sleep apnea) Status: Acute Assessment and plan: Consult Dr. Cervantes Current Visit: Yes Hospitalist: Subjective Interval history: No acute events overnight. Patient still with significant sob, even with talking. She reports a history of WENDY for 5-6 years, she has a cpap at home but says that she only uses it sometimes. Exam - Constitutional Vitals: Period Temp Pulse Resp BP Sys/Arroyo Pulse Ox Last 24 Hr 96.0 F-98.0 F 65-82 14-22 127-161/68-83 92-100 General appearance: over weight - Head Head exam: Present: normocephalic, atraumatic - Eye Eye exam: Present: EOMI Pupils: Present: KENZIE - ENT ENT exam: Present: normal exam - Neck Neck exam: Present: normal inspection - Respiratory Respiratory exam: Present: wheezes - Cardiovascular Cardiovascular exam: Present: regular rate and rhythm - GI/Abdominal GI/Abdominal exam: Present: normal bowel sounds, soft. Absent: tenderness, rebound - Extremities Exam Extremities exam: Present: normal inspection - Back Exam Back exam: Present: normal inspection - Neurological Exam Neurological exam: Present: alert, oriented X3 - Psychiatric Psychiatric exam: Present: normal affect, normal mood - Skin Skin exam: Present: warm, intact Results - Labs CBC & BMP: 02/27/17 04:07 02/27/17 04:07 Specialty Discharge - Follow Up or Referrals Follow up with: Yue Wei MD [Physician] - 03/24/17 9:40 am (Patient will need appointment with [facility] within 1 week of discharge for outpatient cardiac stress test. She will then follow with Dr. Yue Wei 1 week following stress test. Stress test is on 03/05/17 at 7:45 at [facility] NPO after MN before test and NO CAFFIENE for 24 HOURS before test. )
[2017-02-27] MEDS ORDERED: FUROSEMIDE 40 MG TABLET PO SCH (16:00)
[2017-02-27] MEDS: INSULIN GLARGINE 100 UNIT/ML SUBCUT SCH (21:40)
[2017-02-27] MEDS: ROSUVASTATIN 20 MG TABLET PO SCH (21:40)
[2017-02-28] MEDS: NITROGLYCERIN 2% OINT 1 INCH/GM PACK TOP SCH ×4 (01:40→17:37)
[2017-02-28] MEDS: ALBUTEROL/IPRATROPIUM 3 ML NEB RESP TX SCH ×6 (04:05→23:52)
[2017-02-28 04:55] LABS: Basophils % 0.1 % (0.0-0.8); Hematocrit 32.6 VOL% (35.7-47.0); Hemoglobin 10.9 GM/DL (12.0-16.0); Immature Granulocytes % 1.4 %; Immature Granulocytes Absolute 0.21 #; Lymphocytes # 0.9 10*3/uL (1.4-4.0); Lymphocytes % 6.1 % (21.3-54.2); Mean Corpuscular HGB Conc 33.4 GM/DL (32-36); Mean Corpuscular Hemoglobin 28 PG (27-34); Mean Corpuscular Volume 84.2 FL (87-102); Mean Platelet Volume 9.9 FL (9.6-12.0); Monocytes # 0.4 10*3/uL (0.11-0.8); Monocytes % 2.4 % (1.7-12.7); Neutrophils # 13.2 10*3/uL (1.4-7.4); Platelet Count 332 T/CUMM (130-400); Red Blood Count 3.87 MC/CUMM (3.8-5.5); White Blood Count 14.7 T/CUMM (4-12)
[2017-02-28 05:23] LABS: Calcium 8.4 MG/DL (8.5-10.1); Magnesium 1.7 MG/DL (1.8-2.4); Osmolality,Calculated 298.8 MOS/KG (273-304); Potassium 4.3 MMOL/L (3.5-5.1)
[2017-02-28] MEDS: NEBIVOLOL 5 MG TABLET PO SCH (09:53)
[2017-02-28] MEDS: predniSONE 20 MG TABLET PO SCH ×2 (09:53→21:41)
[2017-02-28] MEDS: ASPIRIN EC 81 MG TABLET PO SCH (09:53)
[2017-02-28] MEDS: ENOXAPARIN 30 MG/0.3 ML SYRINGE SUBCUT SCH (09:54)
[2017-02-28] MEDS: FUROSEMIDE 40 MG/4 ML VIAL IV SCH ×2 (09:54→16:26)
[2017-02-28] MEDS: INSULIN REGULAR 100 UNIT/ML SUBCUT SCH ×4 (09:54→21:42)
--- NOTE | 2017-02-28 12:15 | Cardiology Progress Note ---
Assessment and Plan (1) Congestive heart failure Status: Chronic Assessment and plan: Interviewed and examined the patient personally. Discussed findings with the nurse practitioner. I agree with the assessment and plan, with additions as below. See SYSTEM SUPPORT DEVELOPER note separately. 57-year-old female, who was trying to see Dr. Wei for a first cardiology evaluation. She was admitted with shortness of breath, echo suggests diastolic CHF exacerbation, moderate pulmonary hypertension, moderate MR. No ACS -Continue aspirin, statin. -Cont Bystolic, aim for resting heart rate around 60 bpm, systolic blood pressure less than 130 -Lasix 80 mg IV twice daily today. Orthopnea improved. -No DVT or PE on ultrasound and VQ scan -Severe CKD. -Seems to have an asthma component. Still with bronchospasm. Avoid nonselective beta-blockers -No ACS. -Will need follow-up with Dr. Wei. Current Visit: Yes Qualifiers: Congestive heart failure type: unspecified congestive heart failure type Congestive heart failure chronicity: unspecified congestive heart failure chronicity Qualified Code(s): I50.9 - Heart failure, unspecified Cardiology - PN: Subj Interval history: She is feeling better, although still has dyspnea on exertion with light to moderate activity diuresed well with IV Lasix Exam (Progress Note) - Constitutional Vitals: Period Temp Pulse Resp BP Sys/Arroyo Pulse Ox Last 24 Hr 97.4 F-98.6 F 64-80 15-20 131-168/61-80 92-99 General appearance: no acute distress, morbidly obese - Head Head exam: Present: normal inspection. Absent: contusion - Eye Eye exam: Absent: periorbital swelling, scleral icterus Pupils: Absent: dilated - ENT ENT exam: Present: normal external ear exam - Neck Neck exam: Present: normal inspection - Respiratory Respiratory exam: Present: decreased breath sounds. Absent: accessory muscle use, prolonged expiratory phase, rhonchi, wheezes - Cardiovascular Cardiovascular exam: Present: regular rate and rhythm. Absent: JVD, systolic murmur - GI/Abdominal GI/Abdominal exam: Present: normal bowel sounds - Extremities Exam Extremities exam: Present: normal inspection, normal capillary refill, edema (1+ ) - Back Exam Back exam: Present: normal inspection - Neurological Exam Neurological exam: Present: alert, oriented X3 - Psychiatric Psychiatric exam: Present: normal affect, normal mood - Skin Skin exam: Present: normal color, warm. Absent: cyanosis Result/EKG - Labs CBC & BMP: 02/28/17 04:15 02/28/17 04:15 Lab Results: I have reviewed the past 24 hour labs Labs: Laboratory Results - last 24 hr 02/27/17 02/27/17 02/28/17 15:32 20:13 04:15 WBC 14.7 H D RBC 3.87 Hgb 10.9 L Hct 32.6 L MCV 84.2 L MCH 28 MCHC 33.4 RDW 13.0 Plt Count 332 MPV 9.9 Neut % (Auto) 90.0 H Lymph % (Auto) 6.1 L [place] % (Auto) 2.4 Eos % (Auto) 0.0 Baso % (Auto) 0.1 Neut # (Auto) 13.2 H Lymph # (Auto) 0.9 L [place] # (Auto) 0.4 Eos # (Auto) 0.0 Baso # (Auto) 0.0 Immature Gran % 1.4 Nucleated RBC % 0.0 Immature Gran # 0.21 Nucleated RBCs # 0.00 Immature Plt Fraction 0.0 Sodium Potassium Chloride Carbon Dioxide Anion Gap BUN Creatinine GFR Calculation BUN/Creatinine Ratio Glucose POC Glucose 343 H 369 H Calculated Osmolality Calcium Magnesium 02/28/17 04:15 WBC RBC Hgb Hct MCV MCH MCHC RDW Plt Count MPV Neut % (Auto) Lymph % (Auto) [place] % (Auto) Eos % (Auto) Baso % (Auto) Neut # (Auto) Lymph # (Auto) [place] # (Auto) Eos # (Auto) Baso # (Auto) Immature Gran % Nucleated RBC % Immature Gran # Nucleated RBCs # Immature Plt Fraction Sodium 137 Potassium 4.3 Chloride 103 Carbon Dioxide 26 Anion Gap 12.3 BUN 52 H Creatinine 3.20 H GFR Calculation 21 BUN/Creatinine Ratio 16.00 Glucose 316 H POC Glucose Calculated Osmolality 298.8 Calcium 8.4 L Magnesium 1.7 L - EKG EKG results: interpreted by me Specialty Discharge - Follow Up or Referrals Follow up with: Yue Wei MD [Physician] - 03/24/17 9:40 am (Patient will need appointment with [facility] within 1 week of discharge for outpatient cardiac stress test. She will then follow with Dr. Yue Wei 1 week following stress test. Stress test is on 03/05/17 at 7:45 at [facility] NPO after MN before test and NO CAFFIENE for 24 HOURS before test. )
[2017-02-28] MEDS: INSULIN GLARGINE 100 UNIT/ML SUBCUT SCH (21:42)
[2017-03-01] MEDS: NITROGLYCERIN 2% OINT 1 INCH/GM PACK TOP SCH ×5 (01:45→23:53)
[2017-03-01] MEDS: ALBUTEROL/IPRATROPIUM 3 ML NEB RESP TX SCH ×6 (03:29→23:27)
[2017-03-01 04:52] LABS: Basophils % 0.1 % (0.0-0.8); Hematocrit 33.3 VOL% (35.7-47.0); Hemoglobin 11.2 GM/DL (12.0-16.0); Immature Granulocytes % 1.6 %; Immature Granulocytes Absolute 0.24 #; Lymphocytes # 0.8 10*3/uL (1.4-4.0); Lymphocytes % 5.5 % (21.3-54.2); Mean Corpuscular HGB Conc 33.6 GM/DL (32-36); Mean Corpuscular Hemoglobin 28 PG (27-34); Mean Corpuscular Volume 83.9 FL (87-102); Mean Platelet Volume 10.1 FL (9.6-12.0); Monocytes # 0.5 10*3/uL (0.11-0.8); Monocytes % 3.5 % (1.7-12.7); Neutrophils # 13.5 10*3/uL (1.4-7.4); Neutrophils % 89.3 % (38.7-73.9); Platelet Count 342 T/CUMM (130-400); Red Blood Count 3.97 MC/CUMM (3.8-5.5); Red Cell Distribution Width 12.9 % (9.3-17.3); White Blood Count 15.1 T/CUMM (4-12)
[2017-03-01 05:17] LABS: Calcium 8.5 MG/DL (8.5-10.1); Osmolality,Calculated 301.2 MOS/KG (273-304); Potassium 4.3 MMOL/L (3.5-5.1)
[2017-03-01] MEDS: NEBIVOLOL 5 MG TABLET PO SCH (09:30)
[2017-03-01] MEDS: ASPIRIN EC 81 MG TABLET PO SCH (09:31)
[2017-03-01] MEDS: predniSONE 20 MG TABLET PO SCH ×2 (09:31→21:45)
[2017-03-01] MEDS: FUROSEMIDE 40 MG/4 ML VIAL IV SCH ×2 (09:31→17:41)
[2017-03-01] MEDS: INSULIN REGULAR 100 UNIT/ML SUBCUT SCH ×4 (09:31→21:44)
[2017-03-01] MEDS: ENOXAPARIN 30 MG/0.3 ML SYRINGE SUBCUT SCH (09:31)
--- NOTE | 2017-03-01 13:00 | Cardiology Progress Note ---
Assessment and Plan (1) Congestive heart failure Status: Chronic Assessment and plan: 57-year-old female, who was trying to see Dr. Wei for a first cardiology evaluation. She was admitted with shortness of breath, echo suggests diastolic CHF exacerbation, moderate pulmonary hypertension, moderate MR. No ACS. Severe CKD -Continue aspirin, statin. -Cont Bystolic, aim for resting heart rate around 60 bpm, systolic blood pressure less than 130. Increase to 10 mg daily -Lasix 80 mg IV twice daily today. Orthopnea improved. -No DVT or PE on ultrasound and VQ scan -Severe CKD. -Seems to have an asthma component. Still with bronchospasm. Avoid nonselective beta-blockers -No ACS. -Will need follow-up with Dr. Wei. Current Visit: Yes Qualifiers: Congestive heart failure type: unspecified congestive heart failure type Congestive heart failure chronicity: unspecified congestive heart failure chronicity Qualified Code(s): I50.9 - Heart failure, unspecified Cardiology - PN: Subj Interval history: Shortness of breath is improved. She still has lower extremity swelling. Blood pressure elevated, heart rate well controlled. Creatinine slightly trended up, BUN elevated Exam (Progress Note) - Constitutional Vitals: Period Temp Pulse Resp BP Sys/Arroyo Pulse Ox Last 24 Hr 96.8 F-98.4 F 70-82 16-20 141-169/70-93 95-100 General appearance: no acute distress, morbidly obese - Head Head exam: Present: normal inspection, normocephalic - Eye Eye exam: Absent: conjunctival injection, scleral icterus Pupils: Present: fixed. Absent: dilated - ENT ENT exam: Present: normal external ear exam - Neck Neck exam: Present: normal inspection. Absent: tenderness - Respiratory Respiratory exam: Present: clear to auscultation bilaterally. Absent: chest wall tenderness - Cardiovascular Cardiovascular exam: Present: regular rate and rhythm, systolic murmur. Absent : JVD - GI/Abdominal GI/Abdominal exam: Present: normal bowel sounds. Absent: distended - Extremities Exam Extremities exam: Present: normal inspection, normal capillary refill, edema (2+ ) - Back Exam Back exam: Present: normal inspection - Neurological Exam Neurological exam: Present: alert, oriented X3 - Psychiatric Psychiatric exam: Present: normal affect, normal mood - Skin Skin exam: Present: normal color, warm. Absent: cyanosis Result/EKG - Labs CBC & BMP: 03/01/17 04:31 03/01/17 04:31 Lab Results: I have reviewed the past 24 hour labs Labs: Laboratory Results - last 24 hr 02/28/17 02/28/17 02/28/17 15:32 19:13 19:15 WBC RBC Hgb Hct MCV MCH MCHC RDW Plt Count MPV Neut % (Auto) Lymph % (Auto) [place] % (Auto) Eos % (Auto) Baso % (Auto) Neut # (Auto) Lymph # (Auto) [place] # (Auto) Eos # (Auto) Baso # (Auto) Immature Gran % Nucleated RBC % Immature Gran # Nucleated RBCs # Immature Plt Fraction Sodium Potassium Chloride Carbon Dioxide Anion Gap BUN Creatinine GFR Calculation BUN/Creatinine Ratio Glucose POC Glucose 391 H 427 H 397 H Calculated Osmolality Calcium Magnesium 03/01/17 03/01/17 03/01/17 04:31 04:31 07:27 WBC 15.1 H RBC 3.97 Hgb 11.2 L Hct 33.3 L MCV 83.9 L MCH 28 MCHC 33.6 RDW 12.9 Plt Count 342 MPV 10.1 Neut % (Auto) 89.3 H Lymph % (Auto) 5.5 L [place] % (Auto) 3.5 Eos % (Auto) 0.0 Baso % (Auto) 0.1 Neut # (Auto) 13.5 H Lymph # (Auto) 0.8 L [place] # (Auto) 0.5 Eos # (Auto) 0.0 Baso # (Auto) 0.0 Immature Gran % 1.6 Nucleated RBC % 0.0 Immature Gran # 0.24 Nucleated RBCs # 0.00 Immature Plt Fraction 0.0 Sodium 134 L Potassium 4.3 Chloride 99 Carbon Dioxide 27 Anion Gap 12.3 BUN 61 H Creatinine 3.30 H GFR Calculation 20 BUN/Creatinine Ratio 18.00 Glucose 399 H POC Glucose 371 H Calculated Osmolality 301.2 Calcium 8.5 Magnesium 2.0 03/01/17 12:09 WBC RBC Hgb Hct MCV MCH MCHC RDW Plt Count MPV Neut % (Auto) Lymph % (Auto) [place] % (Auto) Eos % (Auto) Baso % (Auto) Neut # (Auto) Lymph # (Auto) [place] # (Auto) Eos # (Auto) Baso # (Auto) Immature Gran % Nucleated RBC % Immature Gran # Nucleated RBCs # Immature Plt Fraction Sodium Potassium Chloride Carbon Dioxide Anion Gap BUN Creatinine GFR Calculation BUN/Creatinine Ratio Glucose POC Glucose 457 H Calculated Osmolality Calcium Magnesium - EKG EKG results: interpreted by me Specialty Discharge - Follow Up or Referrals Follow up with: Yue Wei MD [Physician] - 03/24/17 9:40 am (Patient will need appointment with [facility] within 1 week of discharge for outpatient cardiac stress test. She will then follow with Dr. Yue Wei 1 week following stress test. Stress test is on 03/05/17 at 7:45 at [facility] NPO after MN before test and NO CAFFIENE for 24 HOURS before test. )
--- NOTE | 2017-03-01 17:23 | Hospitalist Progress Note ---
Assessment and Plan (1) Congestive heart failure Status: Chronic Assessment and plan: Diastolic heart failure Cardiology assisting Lasix 80 IV BID Current Visit: Yes Qualifiers: Congestive heart failure type: unspecified congestive heart failure type Congestive heart failure chronicity: unspecified congestive heart failure chronicity Qualified Code(s): I50.9 - Heart failure, unspecified (2) Diabetes Status: Chronic Assessment and plan: SSI FSG elevated Uncontrolled Increase Lantus to 40 units nightly Current Visit: Yes Qualifiers: Diabetic retinopathy severity: with severe nonproliferative retinopathy (3) Shortness of breath Status: Acute Current Visit: Yes (4) Chronic kidney disease Status: Chronic Assessment and plan: Patient was suppose to follow with Dr. Whittaker but missed her appointment Stable Current Visit: Yes Qualifiers: Chronic kidney disease stage: stage 4 (severe) Qualified Code(s): N18.4 - Chronic kidney disease, stage 4 (severe) (5) Asthma Status: Chronic Assessment and plan: Duonebs, prednisone Current Visit: Yes (6) Hypertension Status: Chronic Current Visit: Yes (7) WENDY (obstructive sleep apnea) Status: Acute Assessment and plan: Consult Dr. Cervantes Current Visit: Yes Hospitalist: Subjective Interval history: No acute events overnight. Patient seen after taking a shower. She appears comfortable, sitting up eating dinner. Exam - Constitutional Vitals: Period Temp Pulse Resp BP Sys/Arroyo Pulse Ox Last 24 Hr 96.8 F-97.9 F 70-82 16-20 141-169/70-93 95-100 General appearance: over weight - Head Head exam: Present: normocephalic, atraumatic - Eye Eye exam: Present: EOMI Pupils: Present: KENZIE - ENT ENT exam: Present: normal exam - Neck Neck exam: Present: normal inspection - Respiratory Respiratory exam: Present: clear to auscultation bilaterally. Absent: rhonchi, wheezes - Cardiovascular Cardiovascular exam: Present: regular rate and rhythm - GI/Abdominal GI/Abdominal exam: Present: normal bowel sounds, soft. Absent: tenderness, rebound - Extremities Exam Extremities exam: Present: normal inspection - Back Exam Back exam: Present: normal inspection - Neurological Exam Neurological exam: Present: alert, oriented X3 - Psychiatric Psychiatric exam: Present: normal affect, normal mood - Skin Skin exam: Present: warm, intact Results - Labs CBC & BMP: 03/01/17 04:31 09/17/17 04:31 Specialty Discharge - Follow Up or Referrals Follow up with: Yue Wei MD [Physician] - 03/24/17 9:40 am (Patient will need appointment with [facility] within 1 week of discharge for outpatient cardiac stress test. She will then follow with Dr. Yue Wei 1 week following stress test. Stress test is on 03/05/17 at 7:45 at [facility] NPO after MN before test and NO CAFFIENE for 24 HOURS before test. )
[2017-03-01] MEDS: INSULIN GLARGINE 100 UNIT/ML SUBCUT SCH (21:44)
[2017-03-02] MEDS: ALBUTEROL/IPRATROPIUM 3 ML NEB RESP TX SCH ×6 (03:02→23:39)
[2017-03-02 06:07] LABS: Basophils % 0.1 % (0.0-0.8); Hematocrit 35.3 VOL% (35.7-47.0); Hemoglobin 11.9 GM/DL (12.0-16.0); Immature Granulocytes % 1.3 %; Immature Granulocytes Absolute 0.21 #; Lymphocytes % 6.2 % (21.3-54.2); Mean Corpuscular HGB Conc 33.7 GM/DL (32-36); Mean Corpuscular Hemoglobin 28 PG (27-34); Mean Corpuscular Volume 83.6 FL (87-102); Mean Platelet Volume 10.1 FL (9.6-12.0); Monocytes # 0.6 10*3/uL (0.11-0.8); Monocytes % 3.7 % (1.7-12.7); Neutrophils # 14.1 10*3/uL (1.4-7.4); Neutrophils % 88.7 % (38.7-73.9); Platelet Count 366 T/CUMM (130-400); Red Blood Count 4.22 MC/CUMM (3.8-5.5); Red Cell Distribution Width 12.8 % (9.3-17.3); White Blood Count 15.9 T/CUMM (4-12)
[2017-03-02 06:37] LABS: Calcium 8.9 MG/DL (8.5-10.1); Magnesium 1.9 MG/DL (1.8-2.4); Osmolality,Calculated 297.4 MOS/KG (273-304); Potassium 4.4 MMOL/L (3.5-5.1)
[2017-03-02] MEDS: NITROGLYCERIN 2% OINT 1 INCH/GM PACK TOP SCH ×3 (08:07→18:04)
[2017-03-02] MEDS: ATORVASTATIN 40 MG TABLET PO SCH ×2 (09:07→20:40)
[2017-03-02] MEDS: ASPIRIN EC 81 MG TABLET PO SCH (09:07)
[2017-03-02] MEDS: NEBIVOLOL 5 MG TABLET PO SCH (09:08)
[2017-03-02] MEDS: INSULIN REGULAR 100 UNIT/ML SUBCUT SCH ×4 (09:08→20:39)
[2017-03-02] MEDS: ENOXAPARIN 30 MG/0.3 ML SYRINGE SUBCUT SCH (09:08)
[2017-03-02] MEDS: predniSONE 20 MG TABLET PO SCH (09:08)
[2017-03-02] MEDS: FUROSEMIDE 40 MG/4 ML VIAL IV SCH (09:10)
--- NOTE | 2017-03-02 13:40 | Hospitalist Progress Note ---
Assessment and Plan (1) Congestive heart failure Status: Chronic Assessment and plan: Diastolic heart failure Cardiology assisting Will change lasix to po Current Visit: Yes Qualifiers: Congestive heart failure type: unspecified congestive heart failure type Congestive heart failure chronicity: unspecified congestive heart failure chronicity Qualified Code(s): I50.9 - Heart failure, unspecified (2) Diabetes Status: Chronic Assessment and plan: SSI FSG elevated Uncontrolled Lantus to 40 units nightly Current Visit: Yes Qualifiers: Diabetic retinopathy severity: with severe nonproliferative retinopathy (3) Shortness of breath Status: Acute Current Visit: Yes (4) Chronic kidney disease Status: Chronic Assessment and plan: Patient was suppose to follow with Dr. Whittaker but missed her appointment Stable Current Visit: Yes Qualifiers: Chronic kidney disease stage: stage 4 (severe) Qualified Code(s): N18.4 - Chronic kidney disease, stage 4 (severe) (5) Asthma Status: Chronic Assessment and plan: Duonebs, prednisone Current Visit: Yes (6) Hypertension Status: Chronic Current Visit: Yes (7) WENDY (obstructive sleep apnea) Status: Acute Assessment and plan: Consult Dr. Cervantes Current Visit: Yes Hospitalist: Subjective Interval history: No acute events overnight. Her breathing is much better today. BLE edema is improving. Possible discharge soon Exam - Constitutional Vitals: Period Temp Pulse Resp BP Sys/Arroyo Pulse Ox Last 24 Hr 97.1 F-98.2 F 65-76 16-20 134-168/60-90 96-99 General appearance: over weight - Head Head exam: Present: normocephalic, atraumatic - Eye Eye exam: Present: EOMI Pupils: Present: KENZIE - ENT ENT exam: Present: normal exam - Neck Neck exam: Present: normal inspection - Respiratory Respiratory exam: Present: clear to auscultation bilaterally. Absent: wheezes - Cardiovascular Cardiovascular exam: Present: regular rate and rhythm - GI/Abdominal GI/Abdominal exam: Present: normal bowel sounds, soft. Absent: tenderness, rebound - Extremities Exam Extremities exam: Present: normal inspection - Back Exam Back exam: Present: normal inspection - Neurological Exam Neurological exam: Present: alert, oriented X3 - Psychiatric Psychiatric exam: Present: normal affect, normal mood - Skin Skin exam: Present: warm, intact Results - Labs CBC & BMP: 03/02/17 04:55 03/02/17 04:55 Specialty Discharge - Follow Up or Referrals Follow up with: Yue Wei MD [Physician] - 03/24/17 9:40 am (Patient will need appointment with [facility] within 1 week of discharge for outpatient cardiac stress test. She will then follow with Dr. Yue Wei 1 week following stress test. Stress test is on 03/05/17 at 7:45 at [facility] NPO after MN before test and NO CAFFIENE for 24 HOURS before test. )
--- NOTE | 2017-03-02 14:55 | Cardiology Progress Note ---
<Jaclyn Hamilton - Last Filed: 03/02/17 15:07> Assessment and Plan (1) Chest pain Status: Acute Assessment and plan: SEE PLAN OF CARE LISTED BELOW. Current Visit: Yes (2) Congestive heart failure Status: Chronic Assessment and plan: SEE PLAN OF CARE LISTED BELOW. Current Visit: Yes Qualifiers: Congestive heart failure type: unspecified congestive heart failure type Congestive heart failure chronicity: unspecified congestive heart failure chronicity Qualified Code(s): I50.9 - Heart failure, unspecified (3) Diabetes Status: Chronic Assessment and plan: SEE PLAN OF CARE LISTED BELOW. Current Visit: Yes Qualifiers: Diabetic retinopathy severity: with severe nonproliferative retinopathy (4) Elevated d-dimer Status: Acute Assessment and plan: SEE PLAN OF CARE LISTED BELOW. Current Visit: Yes (5) Shortness of breath Status: Acute Assessment and plan: SEE PLAN OF CARE LISTED BELOW. Current Visit: Yes (6) Chronic kidney disease Status: Chronic Assessment and plan: SEE PLAN OF CARE LISTED BELOW. Current Visit: Yes Qualifiers: Chronic kidney disease stage: stage 4 (severe) Qualified Code(s): N18.4 - Chronic kidney disease, stage 4 (severe) (7) Asthma Status: Chronic Assessment and plan: SEE PLAN OF CARE LISTED BELOW. Current Visit: Yes (8) Hypertension Status: Chronic Assessment and plan: SEE PLAN OF CARE LISTED BELOW. Current Visit: Yes (9) Dyslipidemia Status: Chronic Assessment and plan: SEE PLAN OF CARE LISTED BELOW. Current Visit: Yes (10) Hypomagnesemia Status: Acute Assessment and plan: SEE PLAN OF CARE LISTED BELOW. Current Visit: Yes (11) Obesity Status: Chronic Assessment and plan: SEE PLAN OF CARE LISTED BELOW. Current Visit: Yes (12) WENDY (obstructive sleep apnea) Status: Acute Assessment and plan: SEE PLAN OF CARE LISTED BELOW. Current Visit: Yes Cardiology - PN: Subj Interval history: PERSON INVESTIGATOR: Dr. Wei SUMMARY Ms. Regalado is a 57 year old female without known history of coronary artery disease, not routinely followed by cardiology. She has an appointment to see Dr. Wei for her first cardiology evaluation. Cardiac risk factors include : Hypertension, obesity, sedentary lifestyle, diabetes and former smoker (quit 9 years ago). Denies significant family history of CAD. She does report having a negative stress test performed in 2006. However, I cannot locate this record. Also reports having a clean heart catheterization in the distant past. No report noted in the EMR. She was admitted with shortness of breath, echo suggests diastolic CHF exacerbation, moderate pulmonary hypertension, moderate MR. No ACS. No DVT or PE on ultrasound and VQ scan. Severe CKD. 2016 Patient seen and examined on the telemetry unit. She is doing well this morning. Sitting up in bed in no acute distress. Reports that her breathing continues to improve. She can walk 2 laps around the telemetry nurses station without experiencing dyspnea. This is a great improvement since Thursday as she could not even walk from the bed to the bathroom without experiencing dyspnea. No complaints of chest pain, heaviness or tightness. Hemodynamically stable. Tolerating cardioselective beta-shawna well. Denies orthopnea. She has diuresed well with IV Lasix although her daily weights do not coincide. Lasix transition to p.o. today. If patient tolerates this transition well she could possibly be eligible for discharge tomorrow. On further discuss with Dr. Snow and await his additional recommendations. IMPRESSION AND PLAN 1. CHEST PAIN - Ruled out for MD. No ACS. Seems to have an asthma component. Avoiding nonselective beta-blockers. Continue aspirin, Bystolic and statin. We will plan to further risk stratify patient with outpatient cardiac stress test in 1 week when her asthma and acute diastolic heart failure is compensated. Patient is agreeable to this plan. She will follow with Dr. Wei in 1 week for outpatient stress test. 2. SHORTNESS OF BREATH - Improved. Suspect this is multifactorial to include both asthma exacerbation and acute exacerbation of diastolic congestive heart failure. Continue Lasix and treatment for asthma. 3. CHRONIC KIDNEY DISEASE - Avoiding nephrotoxic agents. Will not initiate BEENA or ARB for fear of worsening renal function. Patient's Lovenox is renally dosed. Daily BMP. 4. ELEVATED D-DIMER - No DVT or PE on ultrasound and VQ scan. 5. ASTHMA - Improved. No wheezing on exam. Continue breathing treatments, steroids and supplemental oxygen. 6. DIABETES - Sliding scale insulin. Accu-Cheks before meals and at bedtime. Blood sugars suboptimally controlled while on steroid therapy. Sliding scale regimen increased to high intensity. 7. HYPERTENSION - Under well control this hospitalization. Continue current plan of care. 8. ACUTE DIASTOLIC CHF EXACERBATION -improving. Transition to p.o. Lasix today. I will transition patient to p.o. Lasix today. Avoiding BEENA inhibitor and ARB due to fear of worsening renal function. Continue beta-shawna. 9. DYSLIPIDEMIA - LDL 87. Continue lipid-lowering agent. Lipid panel will need to be repeated in 4-6 weeks. 10. HYPOMAGNESEMIA - Replace per protocol. 11. LEUKOCYTOSIS - Steroid-induced. 12. SLEEP APNEA - Dr. Cervantes has been consulted Exam (Progress Note) - Constitutional Vitals: Period Temp Pulse Resp BP Sys/Arroyo Pulse Ox Last 24 Hr 97.1 F-98.2 F 65-76 16-20 134-168/60-90 96-99 Exam: General: Appears well with no apparent distress. Pleasant and cooperative. Obese. Appears comfortable. HEENT: PERRL, normocephalic, atraumatic. Mucous membranes moist. No jaundice noted. Conjunctiva moist and clear, sclerae anicteric Neck: Unable to assess for JVD due to habitus. no thyromegaly or lymphadenopathy noted. No carotid bruit appreciated Cardiac: Regular rate and rhythm. No murmur rub or gallop. Lungs: Clear to auscultation. Oxygen via nasal cannula Abdomen: Obese. Soft, bowel sounds normoactive. Nontender and nondistended. No abdominal bruit or thrill noted. No masses noted. Extremities: No clubbing, cyanosis noted. Trace lower extremity edema. Upper extremity pulses 2+. Lower extremity pulses 2+. Capillary refill less than 3 seconds. Skin: No unusual lesions or rashes. No skin breakdown appreciated. Neuro: Awake, alert and oriented 3. Moves all extremities well without hemiparesis or paralysis. No essential tremor is appreciated. Result/EKG - Labs CBC & BMP: 03/02/17 04:55 03/02/17 04:55 Lab Results: I have reviewed the past 24 hour labs Labs: Laboratory Results - last 24 hr 03/01/17 03/01/17 03/01/17 16:27 19:36 23:38 WBC RBC Hgb Hct MCV MCH MCHC RDW Plt Count MPV Neut % (Auto) Lymph % (Auto) [place] % (Auto) Eos % (Auto) Baso % (Auto) Neut # (Auto) Lymph # (Auto) [place] # (Auto) Eos # (Auto) Baso # (Auto) Immature Gran % Nucleated RBC % Immature Gran # Nucleated RBCs # Immature Plt Fraction Sodium Potassium Chloride Carbon Dioxide Anion Gap BUN Creatinine GFR Calculation BUN/Creatinine Ratio Glucose POC Glucose > 500 H* 454 H 352 H Calculated Osmolality Calcium Magnesium 03/02/17 03/02/17 03/02/17 04:55 04:55 07:22 WBC 15.9 H RBC 4.22 Hgb 11.9 L Hct 35.3 L MCV 83.6 L MCH 28 MCHC 33.7 RDW 12.8 Plt Count 366 MPV 10.1 Neut % (Auto) 88.7 H Lymph % (Auto) 6.2 L [place] % (Auto) 3.7 Eos % (Auto) 0.0 Baso % (Auto) 0.1 Neut # (Auto) 14.1 H Lymph # (Auto) 1.0 L [place] # (Auto) 0.6 Eos # (Auto) 0.0 Baso # (Auto) 0.0 Immature Gran % 1.3 Nucleated RBC % 0.0 Immature Gran # 0.21 Nucleated RBCs # 0.00 Immature Plt Fraction 0.0 Sodium 133 L Potassium 4.4 Chloride 98 Carbon Dioxide 25 Anion Gap 14.4 BUN 69 H Creatinine 3.20 H GFR Calculation 21 BUN/Creatinine Ratio 21.00 H Glucose 317 H POC Glucose 332 H Calculated Osmolality 297.4 Calcium 8.9 Magnesium 1.9 03/02/17 11:44 WBC RBC Hgb Hct MCV MCH MCHC RDW Plt Count MPV Neut % (Auto) Lymph % (Auto) [place] % (Auto) Eos % (Auto) Baso % (Auto) Neut # (Auto) Lymph # (Auto) [place] # (Auto) Eos # (Auto) Baso # (Auto) Immature Gran % Nucleated RBC % Immature Gran # Nucleated RBCs # Immature Plt Fraction Sodium Potassium Chloride Carbon Dioxide Anion Gap BUN Creatinine GFR Calculation BUN/Creatinine Ratio Glucose POC Glucose 371 H Calculated Osmolality Calcium Magnesium Specialty Discharge - Follow Up or Referrals Follow up with: Yue Wei MD [Physician] - 03/24/17 9:40 am (Patient will need appointment with [facility] within 1 week of discharge for outpatient cardiac stress test. She will then follow with Dr. Yue Wei 1 week following stress test. Stress test is on 03/05/17 at 7:45 at [facility] NPO after MN before test and NO CAFFIENE for 24 HOURS before test. ) <Kemar Snow - Last Filed: 03/02/17 15:38> Exam (Progress Note) - Constitutional Vitals: Period Temp Pulse Resp BP Sys/Arroyo Pulse Ox Last 24 Hr 97.1 F-98.2 F 65-76 16-20 134-168/60-90 96-99 Result/EKG - Labs CBC & BMP: 03/02/17 04:55 03/02/17 04:55 Labs: Laboratory Results - last 24 hr 03/01/17 03/01/17 03/01/17 16:27 19:36 23:38 WBC RBC Hgb Hct MCV MCH MCHC RDW Plt Count MPV Neut % (Auto) Lymph % (Auto) [place] % (Auto) Eos % (Auto) Baso % (Auto) Neut # (Auto) Lymph # (Auto) [place] # (Auto) Eos # (Auto) Baso # (Auto) Immature Gran % Nucleated RBC % Immature Gran # Nucleated RBCs # Immature Plt Fraction Sodium Potassium Chloride Carbon Dioxide Anion Gap BUN Creatinine GFR Calculation BUN/Creatinine Ratio Glucose POC Glucose > 500 H* 454 H 352 H Calculated Osmolality Calcium Magnesium 03/02/17 03/02/17 03/02/17 04:55 04:55 07:22 WBC 15.9 H RBC 4.22 Hgb 11.9 L Hct 35.3 L MCV 83.6 L MCH 28 MCHC 33.7 RDW 12.8 Plt Count 366 MPV 10.1 Neut % (Auto) 88.7 H Lymph % (Auto) 6.2 L [place] % (Auto) 3.7 Eos % (Auto) 0.0 Baso % (Auto) 0.1 Neut # (Auto) 14.1 H Lymph # (Auto) 1.0 L [place] # (Auto) 0.6 Eos # (Auto) 0.0 Baso # (Auto) 0.0 Immature Gran % 1.3 Nucleated RBC % 0.0 Immature Gran # 0.21 Nucleated RBCs # 0.00 Immature Plt Fraction 0.0 Sodium 133 L Potassium 4.4 Chloride 98 Carbon Dioxide 25 Anion Gap 14.4 BUN 69 H Creatinine 3.20 H GFR Calculation 21 BUN/Creatinine Ratio 21.00 H Glucose 317 H POC Glucose 332 H Calculated Osmolality 297.4 Calcium 8.9 Magnesium 1.9 03/02/17 11:44 WBC RBC Hgb Hct MCV MCH MCHC RDW Plt Count MPV Neut % (Auto) Lymph % (Auto) [place] % (Auto) Eos % (Auto) Baso % (Auto) Neut # (Auto) Lymph # (Auto) [place] # (Auto) Eos # (Auto) Baso # (Auto) Immature Gran % Nucleated RBC % Immature Gran # Nucleated RBCs # Immature Plt Fraction Sodium Potassium Chloride Carbon Dioxide Anion Gap BUN Creatinine GFR Calculation BUN/Creatinine Ratio Glucose POC Glucose 371 H Calculated Osmolality Calcium Magnesium
[2017-03-02] MEDS: FUROSEMIDE 40 MG TABLET PO SCH (15:57)
--- NOTE | 2017-03-02 17:32 | Sleep Medicine Consult ---
Assessment and Plan (1) WENDY (obstructive sleep apnea) Status: Acute Assessment and plan: This patient had severe obstructive sleep apnea diagnosed in 2011 and with the severity of her health problems and O2 desaturation, she certainly needs to be compliant with CPAP. I stressed the importance of CPAP compliance with her medical problems and we will arrange for follow-up at [facility] in the sleep clinic there. We will go ahead and initiate CPAP therapy with auto titration from 12-20 cm and follow-up her response. In-line O2 can be added as needed. She will require reevaluation for insurance purposes for treatment for her obstructive sleep apnea will be set up with diagnostic sleep study, most likely in a split-night fashion, after discharge. Thank you for this consult. Current Visit: Yes (2) Congestive heart failure Status: Chronic Assessment and plan: Untreated obstructive sleep apnea certainly can be an exacerbating factor to CHF , whether diastolic or systolic in nature. Compliance with CPAP therapy can help improve management of CHF. It actually has been shown to improve ejection fractions in patients with significant obstructive sleep apnea with systolic congestive heart failure. Current Visit: Yes Qualifiers: Congestive heart failure type: unspecified congestive heart failure type Congestive heart failure chronicity: unspecified congestive heart failure chronicity Qualified Code(s): I50.9 - Heart failure, unspecified (3) Hypertension Status: Chronic Assessment and plan: The prevalence rate for obstructive sleep apnea patients with hypertension is 35 %. That rate can be as high as 80% in patients who require 4 or more medications for blood pressure control. Current Visit: Yes History of Present Illness Chief complaint: Obstructive sleep apnea History of present illness: Ms. Regalado is a 57 year old female who was diagnosed with obstructive sleep apnea several years ago by Dr. Root. Her diagnostic AHI was 36.3 and she had O2 desaturation into the 60s. Over 80% of her sleep was spent with O2 sats of less than 90%. On titration, she was set up on 12 cm of CPAP in August 2011. She was treated with CPAP but states that she subsequently quit using it and is been off of CPAP several years. She was admitted on this occasion with atypical chest pain and shortness of breath and is been diagnosed with a component of diastolic heart dysfunction and CHF with pulmonary hypertension and asthma related issues. Because of her history of obstructive sleep apnea, was consulted. She continues to have issues with snoring and abnormal breathing during sleep. She does think her weight is the same as it was from the time of her original evaluation. She does have symptoms of sleepiness, having an [place] sleepiness score of 7. She does have significant chronic health issues it could be related to untreated sleep apnea including pulmonary hypertension, hypertension, CHF, and diabetes. She resides in [facility] and her primary medical follow-up is the [facility]. Home Medications Medication Instructions Recorded Confirmed Type Carvedilol 25 mg PO BID 12/03/16 02/26/17 History Chlorthalidone 25 mg PO DAILY 12/03/16 02/26/17 History Cholecalciferol (Vitamin D3) 50,000 units PO Q7DAY 12/03/16 02/26/17 History [Vitamin D3] Insulin Detemir [Levemir FlexPen] 10 units SUBCUT AC BREAKFAST 12/03/16 History Insulin Detemir [Levemir FlexPen] 60 units SUBCUT BEDTIME 12/03/16 02/26/17 History amLODIPine [Norvasc] 20 mg PO DAILY 12/03/16 02/26/17 History glyBURIDE [Diabeta] 10 mg PO BID W/MEALS 12/03/16 02/26/17 History Albuterol Inhaler [Proventil 2 puffs INH Q4HR PRN 02/26/17 02/26/17 History Inhaler] Aspirin EC Tab 81 mg PO DAILY 02/26/17 02/26/17 History Atorvastatin [Lipitor] 40 mg PO BEDTIME 02/26/17 02/26/17 History Lisinopril [Lisinopril] 40 mg PO DAILY 02/26/17 02/26/17 History Ranitidine Tab [Zantac Tab] 150 mg PO BID 02/26/17 02/26/17 History Allergies Allergy/AdvReac Type Severity Reaction Status Date / Time No Known Allergies Allergy Verified 02/25/17 22:33 Exam (Pulmonay) H&P - Constitutional Vitals: Period Temp Pulse Resp BP Sys/Raroyo Pulse Ox Last 24 Hr 97.2 F-98.2 F 65-76 16-20 134-173/60-90 96-99 Exam: She is alert and responsive in no acute distress. Pupils equal round reactive to light and accommodation. Extraocular movements intact. Oropharynx with a class IV Mallampati exam. Neck is large with circumference of 19 inches. No thyromegaly. No supraclavicular adenopathy is noted. Chest with symmetrical breath sounds without focal wheeze or rhonchi. Cardiac exam reveals a regular rhythm without murmur or gallop. Abdomen obese nontender without palpable hepatosplenomegaly or mass. Extremities are without clubbing, cyanosis, or significant edema. Neurologically, she is grossly intact. She moves all extremities with good strength. Medical,Surgical,& Family Hx - Medical History Cardio: History of: CHF, Hypertension Neurology: No history of: Seizures HEENT: History of: Eye Problem (READING GLASSES) Endocrine: History of: Diabetes Mellitus (IDDM), Dyslipidemia Respiratory: History of: Asthma, Obstructive Sleep Apnea (Diagnosed several years ago here by Dr. Root, noncompliant with CPAP ) No history of: Respiratory Problems (FLU VAC- YES; PNEU VAC- YES.) Renal: History of: Renal Problems (PT STATES KIDNEY DISEASE, BUT NOT ON DIALYSIS ) Musculoskeletal: History of: Back/Neck Problems (BACK PAIN.) Reproductive: History of: Reproductive Problems (ENLARGED UTERUS.) - Surgical History Abdominal Surgeries: Surgical HX of: Colonoscopy - Family History Family History: Reports;: Family Diabetes, Family Hypertension - Social History Smoking Status: Former smoker Frequency of Alcohol Use: None Type of Drug Use: None Results - Labs CBC & BMP: 03/02/17 04:55 03/02/17 04:55 Lab Results: I have reviewed the past 24 hour labs Labs: Recommend checking TSH to exclude hypothyroidism as a contributing factor. Specialty Discharge - Follow Up or Referrals Follow up with: Yue Wei MD [Physician] - 03/24/17 9:40 am (Patient will need appointment with [facility] within 1 week of discharge for outpatient cardiac stress test. She will then follow with Dr. Yue Wei 1 week following stress test. Stress test is on 03/05/17 at 7:45 at [facility] NPO after MN before test and NO CAFFIENE for 24 HOURS before test. )
[2017-03-02] MEDS: INSULIN GLARGINE 100 UNIT/ML SUBCUT SCH (20:39)
[2017-03-03] MEDS: NITROGLYCERIN 2% OINT 1 INCH/GM PACK TOP SCH ×3 (00:41→13:05)
[2017-03-03] MEDS: ALBUTEROL/IPRATROPIUM 3 ML NEB RESP TX SCH ×3 (03:58→11:30)
[2017-03-03 05:24] LABS: Basophils % 0.1 % (0.0-0.8); Eosinophils % 0.1 % (0.00-10.9); Hematocrit 33.4 VOL% (35.7-47.0); Hemoglobin 11.3 GM/DL (12.0-16.0); Immature Granulocytes % 0.8 %; Immature Granulocytes Absolute 0.14 #; Lymphocytes # 2.9 10*3/uL (1.4-4.0); Lymphocytes % 16.9 % (21.3-54.2); Mean Corpuscular HGB Conc 33.8 GM/DL (32-36); Mean Corpuscular Hemoglobin 28 PG (27-34); Mean Corpuscular Volume 83.9 FL (87-102); Mean Platelet Volume 10.4 FL (9.6-12.0); Monocytes # 1.7 10*3/uL (0.11-0.8); Neutrophils # 12.3 10*3/uL (1.4-7.4); Neutrophils % 72.1 % (38.7-73.9); Platelet Count 349 T/CUMM (130-400); Red Blood Count 3.98 MC/CUMM (3.8-5.5); Red Cell Distribution Width 12.9 % (9.3-17.3)
[2017-03-03 06:02] LABS: Calcium 8.8 MG/DL (8.5-10.1); Magnesium 2.1 MG/DL (1.8-2.4); Osmolality,Calculated 300.2 MOS/KG (273-304)
[2017-03-03] MEDS: INSULIN REGULAR 100 UNIT/ML SUBCUT SCH ×2 (08:18→13:04)
[2017-03-03] MEDS: NEBIVOLOL 5 MG TABLET PO SCH (08:18)
[2017-03-03] MEDS: FUROSEMIDE 40 MG TABLET PO SCH (08:18)
[2017-03-03] MEDS: ENOXAPARIN 30 MG/0.3 ML SYRINGE SUBCUT SCH (08:19)
[2017-03-03] MEDS: ASPIRIN EC 81 MG TABLET PO SCH (08:19)
[2017-03-03] MEDS: predniSONE 20 MG TABLET PO SCH (08:19)
--- NOTE | 2017-03-03 08:40 | XRay Report ---
XR chest 1V portable Indication: SOB Comparison: Chest x-ray February 26, 2017 Technique: Single frontal view of the chest. Findings: The cardiomediastinal silhouette is stable in configuration. There is a nonspecific reticular pattern throughout the bilateral lungs suspicious for interstitial pulmonary edema, interstitial pneumonia, or other interstitial lung disease. Visualized osseous and surrounding soft tissue structures appear grossly unchanged. IMPRESSION: As above. PROCEDURE INTERPRETED AT [facility] DEPARTMENT OF RADIOLOGY Final Report Signed by: Dr Chepe Mensah
--- NOTE | 2017-03-03 09:42 | Discharge Summary ---
<Merary Graves - Last Filed: 03/03/17 10:37> Hospital Course - Hospital Course Hospital Course: Ms Regalado PMHx of CHF, HTN, Dyslipidemia, IDDM, renal problems, not yet on dialysis, asthma, back/neck problems, and enlarged uterus.presented to the ED 02/25/17 from [facility] for further evaluation of SOB and chest tightness x 2 days. IN ED: Lung normal, NO PE found. CXR: nothing acute. LABS: BNP 142, Troponin negative, BUN 38 and creatinine 3.00. Hospital Medicine consulted and admit the patient to TELE, repeat serial cardiac enzymes , consult cardiology, VQ scan, accu-checks, fasting lipid. No DVT or PE on ultrasound and VQ scan. Repeat troponins remained negative. Blood glucose fairly controlled and chronic renal disease remained stable throughout hospitalization. Cardiology consult and plan as follow: Echo suggests diastolic CHF exacerbation , moderate pulmonary hypertension, moderate MR. No ACS -Continue aspirin, statin, Bystolic, avoid beta-blockers related: Seems to have an asthma component -Lasix 80 mg IV twice daily. If has no significant orthopnea tonight, may switch to p.o. Lasix tomorrow -Severe CKD. -follow up with Dr. Holliday Sleep Medicine Consult as Follows: Patient has severe obstructive sleep apnea which was diagnosed in 2011 with the severity of her health problems and O2 desaturation, she needs to be compliant with CPAP. Will arrange for follow-up at [facility] in the sleep clinic. Today 03/03/17 Patient is stable. She is feeling better and will be discharged home today. She will need to follow up on 03/05/17 with [facility] for cardiac outpatient stress test; then follow up on 03/24/17 with [employer] (Dr Wei). She will need to follow up with Primary Care Physician in one week. Specialty Discharge - Follow Up or Referrals Follow up with: Yue Wei MD [Physician] - 03/24/17 9:40 am (Patient will need appointment with [facility] within 1 week of discharge for outpatient cardiac stress test. She will then follow with Dr. Yue Wei 1 week following stress test. Stress test is on 03/05/17 at 7:45 at [facility] NPO after MN before test and NO CAFFIENE for 24 HOURS before test. ) Beny Whittaker Jr., MD [Physician] - 03/10/17 10:00 am (ckd bring medications with you) Discharge Plan - Discharge Data Disposition: Disch To Home/Self Care - Discharge Medications New Nebivolol [Bystolic] 10 mg PO DAILY #30 tablet RX: predniSONE TAB [PredniSONE] 10 mg PO DAILY #17 tablet RX: Furosemide Tab [Lasix Tab] 40 mg PO BID DIURETIC #60 tablet Continue RX: glyBURIDE [Diabeta] 10 mg PO BID W/MEALS RX: Cholecalciferol (Vitamin D3) [Vitamin D3] 50,000 units PO Q7DAY RX: Insulin Detemir [Levemir FlexPen] 60 units SUBCUT BEDTIME RX: Aspirin EC Tab 81 mg PO DAILY RX: Albuterol Inhaler [Proventil Inhaler] 2 puffs INH Q4HR PRN PRN Reason: Wheezing RX: Insulin Detemir [Levemir FlexPen] 10 units SUBCUT AC BREAKFAST RX: Ranitidine Tab [Zantac Tab] 150 mg PO BID RX: Atorvastatin [Lipitor] 40 mg PO BEDTIME Discontinued RX: Carvedilol 25 mg PO BID RX: Chlorthalidone 25 mg PO DAILY RX: amLODIPine [Norvasc] 20 mg PO DAILY Lisinopril [Lisinopril] 40 mg PO DAILY - Follow Up or Referral Follow Up: Yue Wei MD [Physician] - 03/24/17 9:40 am (Patient will need appointment with [facility] within 1 week of discharge for outpatient cardiac stress test. She will then follow with Dr. Yue Wei 1 week following stress test. Stress test is on 03/05/17 at 7:45 at [facility] NPO after MN before test and NO CAFFIENE for 24 HOURS before test. ) Beny Whittaker Jr., MD [Physician] - 03/10/17 10:00 am (ckd bring medications with you) - Forms/Instructions Instructions: Heart Failure (DC), Chest Pain (DC), Asthma (DC), Sleep Apnea Syndrome (DC), Chronic Kidney Disease (DC), Chronic Hypertension (DC), Obesity ( DC), Hypomagnesemia (DC), Hyperlipidemia (DC) Exam - Constitutional Vitals: Period Temp Pulse Resp BP Sys/Arroyo Pulse Ox Last 24 Hr 96.4 F-97.9 F 54-89 16-20 134-173/60-81 96-100 Discharge Results Labs on day of discharge: Labs from last 24 hours 03/03/17 03/03/17 03/03/17 07:57 04:42 04:42 WBC 17.0 H RBC 3.98 Hgb 11.3 L Hct 33.4 L MCV 83.9 L MCH 28 MCHC 33.8 RDW 12.9 Plt Count 349 MPV 10.4 Neut % (Auto) 72.1 Lymph % (Auto) 16.9 L [place] % (Auto) 10.0 Eos % (Auto) 0.1 Baso % (Auto) 0.1 Neut # (Auto) 12.3 H Lymph # (Auto) 2.9 [place] # (Auto) 1.7 H Eos # (Auto) 0.0 Baso # (Auto) 0.0 Immature Gran % 0.8 Nucleated RBC % 0.0 Immature Gran # 0.14 Nucleated RBCs # 0.00 Immature Plt Fraction 0.0 Sodium 134 L Potassium 4.0 Chloride 98 Carbon Dioxide 26 Anion Gap 14.0 BUN 78 H Creatinine 3.60 H GFR Calculation 18 BUN/Creatinine Ratio 21.00 H Glucose 276 H POC Glucose 222 H Calculated Osmolality 300.2 Calcium 8.8 Magnesium 2.1 03/02/17 03/02/17 03/02/17 23:27 19:10 15:45 WBC RBC Hgb Hct MCV MCH MCHC RDW Plt Count MPV Neut % (Auto) Lymph % (Auto) [place] % (Auto) Eos % (Auto) Baso % (Auto) Neut # (Auto) Lymph # (Auto) [place] # (Auto) Eos # (Auto) Baso # (Auto) Immature Gran % Nucleated RBC % Immature Gran # Nucleated RBCs # Immature Plt Fraction Sodium Potassium Chloride Carbon Dioxide Anion Gap BUN Creatinine GFR Calculation BUN/Creatinine Ratio Glucose POC Glucose 391 H 475 H 370 H Calculated Osmolality Calcium Magnesium 03/02/17 11:44 WBC RBC Hgb Hct MCV MCH MCHC RDW Plt Count MPV Neut % (Auto) Lymph % (Auto) [place] % (Auto) Eos % (Auto) Baso % (Auto) Neut # (Auto) Lymph # (Auto) [place] # (Auto) Eos # (Auto) Baso # (Auto) Immature Gran % Nucleated RBC % Immature Gran # Nucleated RBCs # Immature Plt Fraction Sodium Potassium Chloride Carbon Dioxide Anion Gap BUN Creatinine GFR Calculation BUN/Creatinine Ratio Glucose POC Glucose 371 H Calculated Osmolality Calcium Magnesium DS: Provider Date of admission: 02/26/17 01:55 Primary care physician: Christiane Franco MD Attending physician on admission: Klaus Levy MD Consults: 02/26/17 01:57 Consult to Physician [CONS] Routine Comment: Consulting Provider: Cardiology - [facility] Consult to Specialist Group: Cardiology When should Consulting Provider be notified: In am Person Notified: Adelita Date Notified: 02/26/17 Time Notified: 08:15 02/27/17 11:30 Consult to Physician [CONS] Routine Comment: hx of wendy 5-6yrs, non-compliant with cpap Consulting Provider: Nyasia Cervantes 02/27/17 12:53 Consult to Sleep Center [CONS] Routine Reason for Sleep Center: Sleep Center Physician Discharging clinician: Merary Graves NP <Vanessa Lemus - Last Filed: 03/03/17 14:23> Hospital Course - Time spent with patient Time with patient DS: Greater than 30 minutes (40) Diagnosis - Discharge Diagnosis (1) Congestive heart failure Status: Chronic (2) Diabetes Status: Chronic (3) Shortness of breath Status: Acute (4) Chronic kidney disease Status: Chronic (5) Asthma Status: Chronic (6) Hypertension Status: Chronic (7) WENDY (obstructive sleep apnea) Status: Chronic Discharge Plan - Discharge Data Condition at Discharge: Stable Discharge Diet: heart healthy Activity: increase activity as tolerated Hygiene: no restrictions Weight Bearing at Discharge: weight bear as tolerated Driving: no restrictions Contact your physician if you experience:: Shortness of breath Exam - Constitutional General appearance: over weight - Head Head exam: Present: normocephalic, atraumatic - Eye Eye exam: Present: EOMI Pupils: Present: KENZIE - ENT ENT exam: Present: normal exam - Neck Neck exam: Present: normal inspection - Respiratory Respiratory exam: Present: clear to auscultation bilaterally. Absent: rhonchi, wheezes - Cardiovascular Cardiovascular exam: Present: regular rate and rhythm - GI/Abdominal GI/Abdominal exam: Present: normal bowel sounds, soft. Absent: tenderness, rebound - Extremities Exam Extremities exam: Present: normal inspection - Back Exam Back exam: Present: normal inspection - Neurological Exam Neurological exam: Present: alert, oriented X3 - Psychiatric Psychiatric exam: Present: normal affect, normal mood - Skin Skin exam: Present: warm, intact
[2017-03-03 12:21] VITALS: BP 145/72
--- NOTE | 2017-03-03 14:39 | Sleep Medicine Progress Note ---
Assessment and Plan (1) WENDY (obstructive sleep apnea) Status: Chronic Assessment and plan: This patient does have significant obstructive sleep apnea. We will try to get her set up on CPAP at 13 cm but will need to confirm that she does not require re-titration. She had excellent results last night on auto titration CPAP with average device pressure of 13 cm. Current Visit: Yes (2) Congestive heart failure Status: Chronic Current Visit: Yes Qualifiers: Congestive heart failure type: unspecified congestive heart failure type Congestive heart failure chronicity: unspecified congestive heart failure chronicity Qualified Code(s): I50.9 - Heart failure, unspecified (3) Hypertension Status: Chronic Current Visit: Yes Sleep Medicine Subjective Interval history: Patient did very well with CPAP therapy last night she tolerated it. We will need to check and see if she is going to require a re-titration sleep study. Most likely she will. She did do much better last night with CPAP and I think will benefit from being on CPAP therapy. We will try to get her back in for follow-up in the [facility] sleep clinic as soon as possible and titrate her if necessary. Exam (Progress Note) - Constitutional Vitals: Period Temp Pulse Resp BP Sys/Arroyo Pulse Ox Last 24 Hr 96.4 F-97.9 F 54-89 16-20 138-173/72-81 96-100 Exam: She is alert and responsive in no acute distress. Pupils equal round reactive to light and accommodation. Extraocular movements intact. Oropharynx with a class III Mallampati exam. Neck supple without adenopathy or thyromegaly. No supraclavicular adenopathy is noted. Chest with good air movement and no focal wheeze rhonchi. Cardiac exam reveals regular rhythm without murmur or gallop. Abdomen obese nontender extremities without increased edema. Neurologically, she is grossly intact. She moves all extremities with good strength. Results - Labs CBC & BMP: 03/03/17 04:42 03/03/17 04:42 Lab Results: I have reviewed the past 24 hour labs Specialty Discharge - Follow Up or Referrals Follow up with: Yue Wei MD [Physician] - 03/24/17 9:40 am (Patient will need appointment with [facility] within 1 week of discharge for outpatient cardiac stress test. She will then follow with Dr. Yue Wei 1 week following stress test. Stress test is on 03/05/17 at 7:45 at [facility] NPO after MN before test and NO CAFFIENE for 24 HOURS before test. ) Beny Whittaker Jr., MD [Physician] - 03/10/17 10:00 am (ckd bring medications with you)
== END 2017-03-03 16:35 | disposition home or self-care (01) | DRG 291 ==
LOC: N.ED 22:17 → N.EDINP 22:17 → OBSVTOIN 02-26 01:55 → SUATTDRO 02-26 01:55 → N.TELES 02-26 02:30
PROVIDERS: ADMIT Internal Medicine; ATTEND Internal Medicine

== ENCOUNTER 2019-08-08 14:53 | Inpatient (IN) ==
[2019-08-08] MEDS ORDERED: ALBUTEROL 2.5 MG/3 ML NEB RESP TX PRN (19:14)
[2019-08-08] MEDS ORDERED: ERGOCALCIFEROL 50,000 UNIT CAPSULE PO SCH (19:15)
[2019-08-08] MEDS ORDERED: ACETAMINOPHEN 325 MG TABLET PO PRN (19:16)
[2019-08-08] MEDS ORDERED: hydrALAZINE 20 MG/1 ML VIAL IV PRN (19:16)
[2019-08-08] MEDS ORDERED: ONDANSETRON 4 MG/2 ML VIAL IV PRN (19:16)
[2019-08-08] MEDS ORDERED: DOCUSATE SODIUM 100 MG CAPSULE PO PRN (19:16)
[2019-08-08] MEDS ORDERED: GLUCAGON 1 MG VIAL IM PRN (19:18)
[2019-08-08] MEDS ORDERED: DEXTROSE 10% 250 ML BAG IV PRN (19:18)
[2019-08-08] MEDS ORDERED: glyBURIDE 5 MG TABLET PO SCH (19:30)
[2019-08-08 19:34] LABS: Basophils % 0.3 % (0.0-0.8); Eosinophils # 0.3 10*3/uL (0.0-0.87); Eosinophils % 2.7 % (0.00-10.9); Hematocrit 32.2 VOL% (35.7-47.0); Immature Granulocytes % 0.6 %; Immature Granulocytes Absolute 0.06 #; Lymphocytes % 20.1 % (21.3-54.2); Mean Corpuscular HGB Conc 31.1 GM/DL (32-36); Mean Corpuscular Volume 93.6 FL (87-102); Mean Platelet Volume 9.2 FL (9.6-12.0); Monocytes % 4.8 % (1.7-12.7); Neutrophils % 71.5 % (38.7-73.9); Platelet Count 350 T/CUMM (130-400); Red Blood Count 3.44 MC/CUMM (3.8-5.5); Red Cell Distribution Width 15.3 % (9.3-17.3)
[2019-08-08 19:55] LABS: Alanine Aminotransferase 17 U/L (13-56); Albumin 2.9 G/DL (3.4-5.0); Alkaline Phosphatase 157 U/L (45-117); Aspartate Amino Transferase 13 U/L (0-37); Bilirubin,Total < 0.39 MG/DL (0.2-1.0); Blood Urea Nitrogen 76 MG/DL (7-18); Calcium 7.6 MG/DL (8.5-10.1); Estimated Glom Filtration Rate 5 ML/MIN; Glucose 73 MG/DL (74-106); Osmolality,Calculated 302.3 MOS/KG (273-304); Total Protein 7.8 G/DL (6.4-8.3)
[2019-08-08] MEDS ORDERED: PROMETHAZINE INJ 25 MG in SODIUM CHLORIDE 0.9% 50 ML IV PRN (20:13)
[2019-08-08] MEDS ORDERED: RANITIDINE 150 MG TABLET PO SCH (21:00)
[2019-08-08] MEDS ORDERED: carvediloL 25 MG TABLET PO SCH (21:00)
[2019-08-08] MEDS ORDERED: ATORVASTATIN 40 MG TABLET PO SCH (21:00)
[2019-08-08] MEDS ORDERED: INSULIN GLARGINE 100 UNIT/ML SUBCUT SCH (21:00)
[2019-08-08] MEDS: FUROSEMIDE 80 MG TABLET PO SCH (21:02)
[2019-08-08] MEDS: INSULIN LISPRO 100 UNIT/ML SUBCUT SCH (21:04)
[2019-08-09 05:55] LABS: Basophils % 0.3 % (0.0-0.8); Eosinophils # 0.4 10*3/uL (0.0-0.87); Eosinophils % 3.9 % (0.00-10.9); Hematocrit 28.4 VOL% (35.7-47.0); Hemoglobin 8.8 GM/DL (12.0-16.0); Immature Granulocytes % 0.4 %; Immature Granulocytes Absolute 0.04 #; Lymphocytes # 2.2 10*3/uL (1.4-4.0); Lymphocytes % 22.2 % (21.3-54.2); Mean Corpuscular Volume 93.1 FL (87-102); Mean Platelet Volume 9.5 FL (9.6-12.0); Monocytes % 6.2 % (1.7-12.7); Platelet Count 310 T/CUMM (130-400); Red Blood Count 3.05 MC/CUMM (3.8-5.5); Red Cell Distribution Width 15.5 % (9.3-17.3); White Blood Count 10.1 T/CUMM (4-12)
[2019-08-09 06:26] LABS: Calcium 7.2 MG/DL (8.5-10.1); Osmolality,Calculated 299.4 MOS/KG (273-304); Risk Ratio 3.07; Thyroid Stimulating Hormone 2.5 uIU/ml (0.358-3.74); VLDL CHOLESTEROL 17.2 MG/DL
[2019-08-09] MEDS: INSULIN LISPRO 100 UNIT/ML SUBCUT SCH ×4 (07:56→20:58)
[2019-08-09] MEDS: amLODIPine 5 MG TABLET PO SCH (08:48)
[2019-08-09] MEDS: FUROSEMIDE 80 MG TABLET PO SCH (08:48)
[2019-08-09] MEDS: ASPIRIN EC 81 MG TABLET PO SCH (08:48)
[2019-08-09] MEDS ORDERED: allopurinoL 100 MG TABLET PO SCH (09:00)
[2019-08-09] MEDS ORDERED: amLODIPine 10 MG TABLET PO SCH (09:00)
[2019-08-09] MEDS ORDERED: MAGNESIUM SULF RIDER 4 GM in PREMIX 1 EACH IV ONE (11:22)
[2019-08-09] MEDS ORDERED: MAGNESIUM SULF RIDER 2 GM in PREMIX 1 EACH IV ONE (11:30)
[2019-08-09] MEDS: SODIUM BICARB INJ 50 MEQ in SODIUM CHLORIDE 0.45% 1,000 ML IV SCH (16:04)
[2019-08-10] MEDS: SODIUM BICARB INJ 50 MEQ in SODIUM CHLORIDE 0.45% 1,000 ML IV SCH ×3 (01:09→22:54)
[2019-08-10 06:29] LABS: Basophils % 0.4 % (0.0-0.8); Eosinophils # 0.5 10*3/uL (0.0-0.87); Eosinophils % 4.5 % (0.00-10.9); Hematocrit 27.5 VOL% (35.7-47.0); Hemoglobin 8.6 GM/DL (12.0-16.0); Immature Granulocytes % 0.4 %; Immature Granulocytes Absolute 0.04 #; Lymphocytes # 2.6 10*3/uL (1.4-4.0); Lymphocytes % 25.6 % (21.3-54.2); Mean Corpuscular HGB Conc 31.3 GM/DL (32-36); Mean Corpuscular Volume 92.3 FL (87-102); Mean Platelet Volume 9.4 FL (9.6-12.0); Monocytes % 7.2 % (1.7-12.7); Neutrophils % 61.9 % (38.7-73.9); Platelet Count 309 T/CUMM (130-400); Red Blood Count 2.98 MC/CUMM (3.8-5.5); White Blood Count 10.3 T/CUMM (4-12)
[2019-08-10 06:38] LABS: Calcium 7.1 MG/DL (8.5-10.1); Osmolality,Calculated 298.5 MOS/KG (273-304)
[2019-08-10] MEDS: INSULIN LISPRO 100 UNIT/ML SUBCUT SCH ×4 (10:22→21:23)
[2019-08-10] MEDS: amLODIPine 5 MG TABLET PO SCH (10:32)
[2019-08-10] MEDS: ASPIRIN EC 81 MG TABLET PO SCH (10:32)
[2019-08-10] MEDS: PANTOPRAZOLE 40 MG TABLET PO SCH (15:20)
[2019-08-10 17:48] LABS: Apearance,Urine CLEAR (Clear); Bacteria,Urine Occasional /HPF (Few); Bilirubin,Urine Negative (Negative); Blood, Urine Small mg/dL (Negative); Glucose,Urine (UA) 50 mg/dL (Negative); Ketones,Urine Negative (Negative); Nitrite,Urine Negative (Negative); Protein,Urine 100 MG/DL; RBC,Urine 2 /HPF (0-4); Squamous Epithelial Cell,Urine Occasional /HPF (0-10); Urine Color Straw (Yellow); Urine Specific Gravity 1.006 (1.001-1.035); Urine Urobilinogen < 2.0 EU/DL (0.2-1.0); WBC,Urine 3 /HPF (0-6)
[2019-08-10] MEDS: HEPARIN 5,000 UNIT/1 ML VIAL SUBCUT SCH (21:24)
[2019-08-11] MEDS ORDERED: SODIUM BICARBONATE 650 MG TABLET PO SCH (09:00)
[2019-08-11] MEDS: PANTOPRAZOLE 40 MG TABLET PO SCH (09:04)
[2019-08-11] MEDS: amLODIPine 5 MG TABLET PO SCH (09:04)
[2019-08-11] MEDS: ASPIRIN EC 81 MG TABLET PO SCH (09:04)
[2019-08-11] MEDS: HEPARIN 5,000 UNIT/1 ML VIAL SUBCUT SCH (09:04)
[2019-08-11] MEDS: INSULIN LISPRO 100 UNIT/ML SUBCUT SCH ×2 (09:05→12:25)
[2019-08-11 09:54] LABS: Calcium 7.1 MG/DL (8.5-10.1); Osmolality,Calculated 293.8 MOS/KG (273-304)
[2019-08-11] MEDS ORDERED: POTASSIUM CHLORIDE 20 MEQ TABLET PO ONE (10:37)
[2019-08-11] MEDS ORDERED: MAGNESIUM SULF RIDER 2 GM in PREMIX 1 EACH IV ONE (10:37)
[2019-08-11 12:46] VITALS: BP 129/79
== END 2019-08-11 14:35 | disposition home or self-care (01) | DRG 389 ==
LOC: N.5E 18:12 → SUATTDRO 18:12
PROVIDERS: ADMIT Internal Medicine; ATTEND Internal Medicine

== ENCOUNTER 2019-10-07 23:30 | Inpatient (IN) ==
[2019-10-08] MEDS ORDERED: DEXTROSE 50% 25 GM/50 ML SYRINGE IV PRN (03:43)
[2019-10-08] MEDS ORDERED: GLUCAGON 1 MG VIAL IM PRN ×2 (03:43)
[2019-10-08] MEDS ORDERED: DEXTROSE 50% 25 GM/50 ML VIAL IV PRN (03:43)
[2019-10-08] MEDS ORDERED: ACETAMINOPHEN 325 MG TABLET PO PRN (03:43)
[2019-10-08] MEDS ORDERED: AZITHROMYCIN INJ 500 MG in SODIUM CHLORIDE 0.9% 250 ML IV SCH (06:00)
[2019-10-08] MEDS: ENOXAPARIN 30 MG/0.3 ML SYRINGE SUBCUT SCH (06:28)
[2019-10-08 07:25] LABS: Alanine Aminotransferase 32 U/L (13-56); Albumin 3.2 G/DL (3.4-5.0); Alkaline Phosphatase 200 U/L (45-117); Aspartate Amino Transferase 20 U/L (0-37); Bilirubin,Total < 0.39 MG/DL (0.2-1.0); Blood Urea Nitrogen 109 MG/DL (7-18); Calcium 5.9 MG/DL (8.5-10.1); Estimated Glom Filtration Rate 3 ML/MIN; Glucose 125 MG/DL (74-106); Osmolality,Calculated 307.8 MOS/KG (273-304); Total Protein 8.3 G/DL (6.4-8.3)
[2019-10-08 07:29] LABS: Basophils % 0.2 % (0.0-0.8); Eosinophils # 0.3 10*3/uL (0.0-0.87); Eosinophils % 2.1 % (0.00-10.9); Hemoglobin 7.8 GM/DL (12.0-16.0); Immature Granulocytes % 1.4 %; Immature Granulocytes Absolute 0.18 #; Lymphocytes # 1.7 10*3/uL (1.4-4.0); Lymphocytes % 12.8 % (21.3-54.2); Mean Corpuscular HGB Conc 31.2 GM/DL (32-36); Mean Platelet Volume 9.8 FL (9.6-12.0); Monocytes % 6.4 % (1.7-12.7); NRBC # 0.04 10*3/uL; Neutrophils % 77.1 % (38.7-73.9); Platelet Count 291 T/CUMM (130-400); Red Blood Count 2.66 MC/CUMM (3.8-5.5); Red Cell Distribution Width 15.3 % (9.3-17.3); White Blood Count 13.3 T/CUMM (4-12)
[2019-10-08 07:54] LABS: ABG Base Excess -16.6 MMOL/L (-2.5-2.5); ABG HCO3 11.6 MMOL/L (20-26); ABG Oxygen Saturation 95.5 % (95-100); ABG PCO2 30.5 MM HG (35-48); ABG PO2 85.3 MM HG (80-95); ABG TCO2 10.6 MMOL/L (23-27)
[2019-10-08 07:56] LABS: ABG PH 7.162 (7.35-7.45)
[2019-10-08] MEDS: SODIUM BICARBONATE 650 MG TABLET PO SCH ×3 (08:46→22:45)
[2019-10-08] MEDS ORDERED: ZINC SULFATE 220 MG CAPSULE PO SCH (09:00)
[2019-10-08] MEDS ORDERED: HYDROXYCHLOROQUINE 200 MG TABLET PO SCH (09:00)
[2019-10-08] MEDS: PIPERACILLIN/TAZOBACTAM 3,375 MG in SODIUM CHLORIDE 0.9% 100 ML IV SCH ×2 (10:56→23:30)
[2019-10-08] MEDS ORDERED: SODIUM BICARBONATE 50 MEQ/50 ML VIAL IV SCH ×2 (21:00→21:30)
[2019-10-08] MEDS ORDERED: cefTRIAXone 1,000 MG in SYRINGE 1 EACH IV SCH (22:00)
[2019-10-08] MEDS: HYDROXYCHLOROQUINE 200 MG TABLET PO SCH (22:45)
[2019-10-08] MEDS: SODIUM BICARB INJ 50 MEQ in DEXTROSE 5% 50 ML IV SCH (23:00)
[2019-10-09 03:11] LABS: Basophils % 0.2 % (0.0-0.8); Eosinophils # 0.3 10*3/uL (0.0-0.87); Eosinophils % 3.2 % (0.00-10.9); Hemoglobin 7.3 GM/DL (12.0-16.0); Immature Granulocytes % 1.5 %; Immature Granulocytes Absolute 0.15 #; Lymphocytes # 1.3 10*3/uL (1.4-4.0); Lymphocytes % 13.1 % (21.3-54.2); Mean Corpuscular HGB Conc 31.7 GM/DL (32-36); Mean Platelet Volume 9.7 FL (9.6-12.0); Monocytes % 7.5 % (1.7-12.7); NRBC # 0.05 10*3/uL; Neutrophils % 74.5 % (38.7-73.9); Platelet Count 240 T/CUMM (130-400); Red Cell Distribution Width 15.3 % (9.3-17.3); White Blood Count 9.8 T/CUMM (4-12)
[2019-10-09 03:29] LABS: Alanine Aminotransferase 24 U/L (13-56); Albumin 2.6 G/DL (3.4-5.0); Alkaline Phosphatase 166 U/L (45-117); Aspartate Amino Transferase 15 U/L (0-37); Bilirubin,Total < 0.39 MG/DL (0.2-1.0); Blood Urea Nitrogen 112 MG/DL (7-18); Estimated Glom Filtration Rate 3 ML/MIN; Glucose 109 MG/DL (74-106); Osmolality,Calculated 311.7 MOS/KG (273-304); Total Protein 7.1 G/DL (6.4-8.3)
[2019-10-09 03:37] LABS: Calcium 5.7 MG/DL (8.5-10.1)
[2019-10-09] MEDS: ENOXAPARIN 30 MG/0.3 ML SYRINGE SUBCUT SCH (05:59)
[2019-10-09] MEDS ORDERED: HYDROXYCHLOROQUINE 200 MG TABLET PO SCH (09:00)
[2019-10-09] MEDS ORDERED: CALCIUM GLUCONATE 1,000 MG in SODIUM CHLORIDE 0.9% 100 ML IV ONE (09:48)
[2019-10-09] MEDS: SODIUM BICARBONATE 650 MG TABLET PO SCH ×3 (09:50→20:45)
[2019-10-09] MEDS: SODIUM BICARB INJ 50 MEQ in DEXTROSE 5% 50 ML IV SCH ×2 (09:50→20:45)
[2019-10-09] MEDS: HYDROXYCHLOROQUINE 200 MG TABLET PO SCH ×2 (09:50→20:45)
[2019-10-09] MEDS: PIPERACILLIN/TAZOBACTAM 3,375 MG in SODIUM CHLORIDE 0.9% 100 ML IV SCH ×2 (10:48→21:05)
[2019-10-09] MEDS ORDERED: ceFAZolin 1,000 MG in SYRINGE 1 EACH IV ONE (11:30)
[2019-10-09 14:37] LABS: Hepatitis B Core IgM Quant 0.06 Index; Hepatitis B Surface Ag Quant < 0.10 Index; Hepatitis B Surface Ag Result Negative (Negative); Hepatitis C Virus Ab Result Negative (Negative)
[2019-10-10 02:50] LABS: Basophils # 0.1 10*3/uL (0.0-0.2); Basophils % 0.5 % (0.0-0.8); Eosinophils # 0.3 10*3/uL (0.0-0.87); Eosinophils % 3.1 % (0.00-10.9); Hematocrit 23.1 VOL% (35.7-47.0); Hemoglobin 7.1 GM/DL (12.0-16.0); Immature Granulocytes % 1.6 %; Immature Granulocytes Absolute 0.16 #; Lymphocytes # 1.5 10*3/uL (1.4-4.0); Lymphocytes % 14.6 % (21.3-54.2); Mean Corpuscular HGB Conc 30.7 GM/DL (32-36); Mean Corpuscular Volume 94.3 FL (87-102); Mean Platelet Volume 9.4 FL (9.6-12.0); Monocytes % 7.4 % (1.7-12.7); NRBC # 0.04 10*3/uL; Neutrophils % 72.8 % (38.7-73.9); Platelet Count 245 T/CUMM (130-400); Red Blood Count 2.45 MC/CUMM (3.8-5.5); Red Cell Distribution Width 15.3 % (9.3-17.3); White Blood Count 10.2 T/CUMM (4-12)
[2019-10-10 03:14] LABS: Alanine Aminotransferase 19 U/L (13-56); Albumin 2.5 G/DL (3.4-5.0); Alkaline Phosphatase 156 U/L (45-117); Aspartate Amino Transferase 14 U/L (0-37); Bilirubin,Total < 0.39 MG/DL (0.2-1.0); Blood Urea Nitrogen 115 MG/DL (7-18); Calcium 5.9 MG/DL (8.5-10.1); Estimated Glom Filtration Rate 3 ML/MIN; Glucose 113 MG/DL (74-106); Total Protein 7.1 G/DL (6.4-8.3)
[2019-10-10] MEDS ORDERED: ceFAZolin 1,000 MG VIAL IM ONE (06:00)
[2019-10-10] MEDS ORDERED: ceFAZolin 1,000 MG in SYRINGE 1 EACH IV ONE (06:00)
[2019-10-10] MEDS ORDERED: LIDOCAINE 1%/EPI INJ 20 ML VIAL ONE (06:12)
[2019-10-10] MEDS ORDERED: BUPIVACAINE MPF 0.25% 30 ML VIAL ONE (06:12)
[2019-10-10] MEDS ORDERED: HEPARIN 5,000 UNIT/1 ML VIAL ONE (06:12)
[2019-10-10] MEDS ORDERED: GLUCAGON 1 MG VIAL IM PRN (07:29)
[2019-10-10] MEDS ORDERED: DEXTROSE 50% 25 GM/50 ML VIAL IV PRN (07:29)
[2019-10-10 08:21] LABS: % Iron Saturation 11.8 % (18-50); Ferritin 178.8 ng/ml (8-252)
[2019-10-10] MEDS ORDERED: propofoL 200 MG/20 ML VIAL IV ONE (08:31)
[2019-10-10] MEDS ORDERED: LIDOCAINE 2% 5 ML VIAL ONE (08:31)
[2019-10-10] MEDS ORDERED: SODIUM CHLORIDE 0.9% 500 ML IV ONE (08:32)
[2019-10-10] MEDS ORDERED: KETAMINE 500 MG/10 ML VIAL ONE (08:32)
[2019-10-10] MEDS ORDERED: MIDAZOLAM 2 MG/2 ML VIAL ONE (08:32)
[2019-10-10] MEDS ORDERED: ONDANSETRON 4 MG/2 ML VIAL ONE (08:32)
[2019-10-10] MEDS ORDERED: SODIUM CHLORIDE 0.9% 1,000 ML IV PRN (08:42)
[2019-10-10] MEDS ORDERED: hydrALAZINE 20 MG/1 ML VIAL IV PRN (08:58)
[2019-10-10] MEDS ORDERED: amLODIPine 10 MG TABLET PO SCH (09:00)
[2019-10-10] MEDS ORDERED: ZINC SULFATE 220 MG CAPSULE PO SCH (09:00)
[2019-10-10 09:41] LABS: Folate 6.9 NG/ML (5.4-24.0)
[2019-10-10] MEDS: SODIUM BICARBONATE 650 MG TABLET PO SCH ×3 (10:12→21:03)
[2019-10-10] MEDS: HYDROXYCHLOROQUINE 200 MG TABLET PO SCH ×2 (10:12→21:03)
[2019-10-10] MEDS: SODIUM BICARB INJ 50 MEQ in DEXTROSE 5% 50 ML IV SCH (10:12)
[2019-10-10] MEDS: HEPARIN 5,000 UNIT/1 ML VIAL SUBCUT SCH ×2 (10:12→19:02)
[2019-10-10] MEDS: MORPHINE 4 MG/1 ML VIAL IV PRN ×2 (11:45→21:44)
[2019-10-10] MEDS: PIPERACILLIN/TAZOBACTAM 3,375 MG in SODIUM CHLORIDE 0.9% 100 ML IV SCH ×2 (14:04→21:15)
[2019-10-10] MEDS: amLODIPine 10 MG TABLET PO SCH (15:10)
[2019-10-10] MEDS ORDERED: HEPARIN 10,000 UNIT/10 ML VIAL IV SCH (17:30)
[2019-10-10] MEDS: FERROUS SULFATE 325 MG TABLET PO SCH (21:03)
[2019-10-11] MEDS: HEPARIN 5,000 UNIT/1 ML VIAL SUBCUT SCH ×3 (00:26→16:44)
[2019-10-11 03:52] LABS: Basophils % 0.4 % (0.0-0.8); Eosinophils # 0.3 10*3/uL (0.0-0.87); Eosinophils % 3.2 % (0.00-10.9); Hematocrit 25.5 VOL% (35.7-47.0); Hemoglobin 8.2 GM/DL (12.0-16.0); Lymphocytes # 1.2 10*3/uL (1.4-4.0); Mean Corpuscular HGB Conc 32.2 GM/DL (32-36); Mean Corpuscular Volume 91.4 FL (87-102); Mean Platelet Volume 9.6 FL (9.6-12.0); Monocytes % 7.5 % (1.7-12.7); NRBC # 0.03 10*3/uL; Neutrophils % 75.9 % (38.7-73.9); Platelet Count 239 T/CUMM (130-400); Red Blood Count 2.79 MC/CUMM (3.8-5.5); Red Cell Distribution Width 14.8 % (9.3-17.3); White Blood Count 10.2 T/CUMM (4-12)
[2019-10-11 04:36] LABS: Osmolality,Calculated 303.4 MOS/KG (273-304)
[2019-10-11] MEDS: amLODIPine 10 MG TABLET PO SCH (08:14)
[2019-10-11] MEDS: FERROUS SULFATE 325 MG TABLET PO SCH ×2 (08:14→20:58)
[2019-10-11] MEDS: HYDROXYCHLOROQUINE 200 MG TABLET PO SCH (08:14)
[2019-10-11] MEDS: SODIUM BICARBONATE 650 MG TABLET PO SCH ×2 (08:14→16:44)
[2019-10-11] MEDS ORDERED: PROMETHAZINE INJ 12.5 MG in SODIUM CHLORIDE 0.9% 50 ML IV PRN (11:35)
[2019-10-11] MEDS ORDERED: ONDANSETRON 4 MG/2 ML VIAL IV PRN (11:35)
[2019-10-11] MEDS ORDERED: diphenhydrAMINE 50 MG/1 ML VIAL IV ONE (12:30)
[2019-10-11] MEDS ORDERED: SCOPOLAMINE 1.5 MG PATCH TRANSDERM ONE (12:30)
[2019-10-12] MEDS: HEPARIN 5,000 UNIT/1 ML VIAL SUBCUT SCH ×2 (00:20→09:27)
[2019-10-12] MEDS: amLODIPine 10 MG TABLET PO SCH (09:27)
[2019-10-12] MEDS: FERROUS SULFATE 325 MG TABLET PO SCH (09:27)
[2019-10-12 16:36] VITALS: BP 147/74
== END 2019-10-12 16:55 | disposition home or self-care (01) | DRG 673 ==
LOC: SUATTDRO 10-08 01:19 → N.2W 10-08 01:19
PROVIDERS: ADMIT Internal Medicine; ATTEND Internal Medicine